=== PATIENT | female | born 1940 ===

== ENCOUNTER 2022-02-26 18:36 | Inpatient (IN) | payer MEDICARE, BC ==
[2022-02-26] MEDS ORDERED: Acetaminophen 650 MG Suppository PR PRN (22:57)
[2022-02-26] MEDS ORDERED: Ondansetron ODT 4 MG TAB PO PRN (22:57)
[2022-02-26] MEDS ORDERED: Ondansetron PF 4 MG/2 ML Vial IVP PRN (22:57)
[2022-02-27] MEDS ORDERED: Piperacillin/Tazobactam 3.375 GM in Sodium Chloride 0.9% 100 ML IVPB SCH (00:01)
[2022-02-27] MEDS ORDERED: Sodium Chloride 0.9% 500 ML IV SCH (00:01)
[2022-02-27 00:05] LABS: Hemoglobin 6.6 g/dL (12.0-16.0); Mean Corpuscular HGB CONC 32.5 g/dL (32.0-36.0); Mean Corpuscular Hemoglobin 34.3 pg (27.0-31.0); Mean Platelet Volume 8.5 fL (7.4-10.4); Platelet Count 145 thou/uL (130-400); RBC Distribution Width 14.8 % (11.5-14.5); Red Blood Cell (RBC) Count 1.93 mill/uL (4.20-5.40); White Blood Cell (WBC) Count 15.7 thou/uL (4.8-10.8)
[2022-02-27] MEDS ORDERED: Pantoprazole 80 MG in Sodium Chloride 0.9% 100 ML IVPB SCH (00:15)
[2022-02-27] MEDS: Octreotide Acetate 1,250 MCG in Sodium Chloride 0.9% 250 ML 250 ML IVPB SCH ×2 (00:16→23:33)
[2022-02-27 00:23] LABS: #Basophils 0.1 thou/uL (0.0-0.2); #Eosinphils 0.1 thou/uL (0.0-0.7); #Lymphocytes 2.4 thou/uL (1.20-3.40); #Monocytes 1.5 thou/uL (0.11-0.59); #Neutrophils 11.6 thou/uL (1.40-6.50); %Basophils 0.9 % (0.0-1.0); %Eosinophils 0.4 % (0.0-10.0); %Lymphocytes 15.3 % (21.0-51.0); %Monocytes 9.3 % (0.0-10.0)
[2022-02-27 00:27] LABS: Anion Gap 17 mmol/L (10-20); BUN (Urea Nitrogen) 51 mg/dL (9.8-20.1); Calc. Creatinine Clearance 50 mL/min (70-130); Calcium 7.6 mg/dL (7.8-10.44); Carbon Dioxide 21 mmol/L (23-31); Chloride 106 mmol/L (98-107); Estimated GFR 69; Glucose 115 mg/dL (83-110); Potassium 5.5 mmol/L (3.5-5.1); Sodium 138 mmol/L (136-145)
[2022-02-27] MEDS ORDERED: Sodium Chloride 0.9% 1,000 ML IV SCH ×2 (00:30→06:15)
[2022-02-27 01:09] LABS: INR-International Normal Ratio 2.4; Prothrombin Time 26.8 sec (12.0-14.7)
[2022-02-27 01:10] LABS: PTT 21.1 sec (22.9-36.1)
[2022-02-27 01:17] LABS: ALT (SGPT) 26 U/L (8-55); AST (SGOT) 45 U/L (5-34); Albumin 2.1 g/dL (3.4-4.8); Alkaline Phosphatase 82 U/L (40-110); Bilirubin, Direct 0.6 mg/dL (0.1-0.3); Bilirubin, Total 1.4 mg/dL (0.2-1.2); Protein, Total 3.4 g/dL (5.8-8.1)
[2022-02-27 04:17] LABS: Bacteria/HPF None Seen HPF (None Seen); Bilirubin Negative (Negative); Blood, Urine Negative (Negative); Clarity Clear (Clear); Glucose, Urine (Dipstick) Normal (Negative); Ketone, Urine Negative (Negative); Leukocyte Negative Leu/uL (Negative); Nitrite Negative (Negative); Protein, Urine (Dipstick) Negative (Neg-Trace); RBC/HPF 0-3 HPF (0-3); Specific Gravity, Urine 1.039 (1.002-1.036); Squamous Epithelial 0-3 HPF (0-3); Urobilinogen Normal mg/dL (Less than 2); pH, Urine 5.5 (5.0-9.0)
[2022-02-27 04:19] LABS: Urine Culture Reflex Yes Yes
[2022-02-27 05:17] LABS: #Basophils 0.1 thou/uL (0.0-0.2); #Eosinphils 0.1 thou/uL (0.0-0.7); #Lymphocytes 2.8 thou/uL (1.20-3.40); #Monocytes 1.8 thou/uL (0.11-0.59); #Neutrophils 11.9 thou/uL (1.40-6.50); %Basophils 0.5 % (0.0-1.0); %Eosinophils 0.5 % (0.0-10.0); %Lymphocytes 16.8 % (21.0-51.0); %Monocytes 10.7 % (0.0-10.0); %Neutrophils 71.5 % (42.0-75.0); Hemoglobin 8.2 g/dL (12.0-16.0); Mean Corpuscular HGB CONC 33.2 g/dL (32.0-36.0); Mean Corpuscular Hemoglobin 32.4 pg (27.0-31.0); Mean Corpuscular Volume 97.4 fl (78.0-98.0); Mean Platelet Volume 8.2 fL (7.4-10.4); Platelet Count 122 thou/uL (130-400); RBC Distribution Width 16.5 % (11.5-14.5); Red Blood Cell (RBC) Count 2.54 mill/uL (4.20-5.40); White Blood Cell (WBC) Count 16.6 thou/uL (4.8-10.8)
[2022-02-27] MEDS: Piperacillin/Tazobactam 3.375 GM in Sodium Chloride 0.9% 100 ML IVPB SCH ×3 (05:56→21:50)
[2022-02-27 05:58] LABS: Lactic Acid 7.8 mmol/L (0.5-2.2)
[2022-02-27 06:10] LABS: Anion Gap 16 mmol/L (10-20); BUN (Urea Nitrogen) 55 mg/dL (9.8-20.1); Calc. Creatinine Clearance 49 mL/min (70-130); Calcium 7.4 mg/dL (7.8-10.44); Carbon Dioxide 23 mmol/L (23-31); Chloride 105 mmol/L (98-107); Estimated GFR 68; Glucose 118 mg/dL (83-110); Potassium 4.9 mmol/L (3.5-5.1); Sodium 139 mmol/L (136-145)
[2022-02-27 07:28] LABS: Actual Bicarbonate (HCO3a) 20.6 mEq/L (22-28); Base Excess (BEa) -1.9 mEq/L (-2.0 to +3.0); CO2 Tension 25.8 mmHg (35.0-45.0); Calcium, Ionized (arterial) 1.04 mmol/L (1.12-1.30); Carboxyhemoglobin (COHb) 0.7 gm% (0.0-3.0); Hemoglobin (Hb) 6.8 g/dL (12.0-16.0); O2 Tension (PaO2), arterial 72.2 mmHg (> 60.0); Potassium - ABG Lab 4.57 mmol/L (3.70-5.30); Puncture Site RRA; pH, Arterial 7.52 (7.35-7.45)
[2022-02-27 08:15] LABS: ALT (SGPT) 28 U/L (8-55); AST (SGOT) 46 U/L (5-34); Albumin 2.2 g/dL (3.4-4.8); Alkaline Phosphatase 68 U/L (40-110); Anion Gap 18 mmol/L (10-20); BUN (Urea Nitrogen) 55 mg/dL (9.8-20.1); Bilirubin, Total 2.1 mg/dL (0.2-1.2); Calc. Creatinine Clearance 49 mL/min (70-130); Calcium 7.4 mg/dL (7.8-10.44); Carbon Dioxide 22 mmol/L (23-31); Chloride 106 mmol/L (98-107); Estimated GFR 68; Globulin 1.3 g/dL (2.4-3.5); Glucose 120 mg/dL (83-110); Protein, Total 3.5 g/dL (5.8-8.1); Sodium 141 mmol/L (136-145)
[2022-02-27 09:52] LABS: Hemoglobin 5.9 g/dL (12.0-16.0); Platelet Count 119 thou/uL (130-400)
[2022-02-27 10:01] LABS: Lactic Acid 10.1 mmol/L (0.5-2.2)
[2022-02-27] MEDS: Lactated Ringer's 1,000 ML IV SCH ×2 (10:17→23:33)
[2022-02-27] MEDS: Pantoprazole 80 MG, Admixture Fee 1 EACH in Sodium Chloride 0.9% 100 ML IVPB SCH ×2 (11:59→22:48)
[2022-02-27 16:32] LABS: Hemoglobin 12.4 g/dL (12.0-16.0)
[2022-02-27 17:11] LABS: #Basophils 0.1 thou/uL (0.0-0.2); #Eosinphils 0.1 thou/uL (0.0-0.7); #Lymphocytes 2.5 thou/uL (1.20-3.40); #Monocytes 1.8 thou/uL (0.11-0.59); #Neutrophils 13.8 thou/uL (1.40-6.50); %Basophils 0.3 % (0.0-1.0); %Eosinophils 0.3 % (0.0-10.0); %Lymphocytes 13.5 % (21.0-51.0); %Monocytes 9.7 % (0.0-10.0); %Neutrophils 76.1 % (42.0-75.0); Hemoglobin 12.1 g/dL (12.0-16.0); Mean Corpuscular HGB CONC 33.7 g/dL (32.0-36.0); Mean Corpuscular Hemoglobin 30.2 pg (27.0-31.0); Mean Corpuscular Volume 89.5 fl (78.0-98.0); Mean Platelet Volume 8.4 fL (7.4-10.4); Platelet Count 54 thou/uL (130-400); RBC Distribution Width 15.2 % (11.5-14.5); Red Blood Cell (RBC) Count 4.01 mill/uL (4.20-5.40); White Blood Cell (WBC) Count 18.2 thou/uL (4.8-10.8)
[2022-02-27 17:21] LABS: INR-International Normal Ratio 2.6; Prothrombin Time 28.3 sec (12.0-14.7)
[2022-02-27 17:39] LABS: Lactic Acid 5.2 mmol/L (0.5-2.2)
[2022-02-27 18:19] LABS: SARS-CoV-2 NAA Rapid Test Not Detected (NotDetected)
[2022-02-27] MEDS ORDERED: PROPOFOL 200 MG/20 ML VIAL ONE ×2 (18:42→19:12)
[2022-02-27 19:08] LABS: PTT 33.3 sec (22.9-36.1); Prothrombin Time 22.8 sec (12.0-14.7)
[2022-02-27 19:09] LABS: D-Dimer Test 3.07 *mcg/mL (0.27-0.43)
[2022-02-27] MEDS ORDERED: Vecuronium 10 MG VIAL ONE (19:12)
[2022-02-27] MEDS ORDERED: Rocuronium Bromide 10 MG/ML (10ML VIAL) ONE (19:12)
[2022-02-27] MEDS ORDERED: Succinylcholine 200 MG/10 ml SYRINGE FS ONE (19:12)
[2022-02-27 19:13] LABS: Platelet Count 62 thou/uL (130-400)
[2022-02-27 19:14] LABS: Fibrinogen 81 mg/dL (253-463)
[2022-02-27 19:18] LABS: Iron Binding Capacity, Total 135 mcg/dL (265-497)
[2022-02-27] MEDS ORDERED: Albumin 5% 500 ML ONE (19:18)
[2022-02-27] MEDS ORDERED: Norepinephrine 4 MG/4 ML VIAL ONE (19:18)
[2022-02-27] MEDS ORDERED: Phenylephrine 10 MG/ML VIAL ONE (19:18)
[2022-02-27 19:19] LABS: Iron 143 ug/dL (50-170); Lipase 56 U/L (8-78)
[2022-02-27] MEDS ORDERED: fentaNYL PF 100 MCG/2 ML SYRINGE ONE (19:26)
[2022-02-27] MEDS ORDERED: Hydrocortisone Sod Succ/PF 250 mg/2 ml Vial ONE (19:27)
[2022-02-27] MEDS ORDERED: Ketamine 50 MG/ML (10ML VIAL) ONE (19:35)
[2022-02-27 19:39] LABS: HBCM Index 0.06 S/CO (0-0.79); HBSAg Index 0.35 S/CO (0-0.99); Hep A IgM AB Non-Reactive (NonReactive); Hep B Surf Ag Non-Reactive S/CO (NonReactive); Hep C IgG Ab Non-Reactive (NonReactive); Hep C Index 0.15 S/CO (0-0.79); Hepatitis B Core IgM Abs Non-Reactive (NonReactive)
[2022-02-27] MEDS ORDERED: Midazolam HCl 5 mg/5 ml Vial ONE (20:08)
[2022-02-27] MEDS ORDERED: Promethazine HCl 25 MG/ML VIAL IM PRN (20:20)
[2022-02-27] MEDS ORDERED: Dextrose 50% Abboject 50 ML SYRINGE SLOW IVP PRN (20:20)
[2022-02-27] MEDS ORDERED: Morphine 4 MG/ML VIAL SLOW IVP PRN ×2 (20:20→20:45)
[2022-02-27] MEDS ORDERED: Dextrose 5% in Water 1,000 ML IV PRN (20:20)
[2022-02-27] MEDS ORDERED: Propofol BOLUS 1,000 MG/100 ML VIAL IV PRN (20:45)
[2022-02-27] MEDS ORDERED: DISCONTINUE PREVIOUS NARCOTIC PAIN MEDICATIONS AND BENZODIAZEPINES FS SCH (20:45)
[2022-02-27] MEDS ORDERED: Fentanyl BOLUS 250 ML IVPB PRN (20:45)
[2022-02-27] MEDS ORDERED: Propofol 1,000 MG/100 ML VIAL IV PRN (20:45)
[2022-02-27] MEDS ORDERED: Famotidine/PF 20 mg/2ml Vial SLOW IVP SCH (21:00)
[2022-02-27] MEDS ORDERED: Fentanyl CADD 100 ML ONE (21:05)
[2022-02-27] MEDS: Fentanyl CADD 100 ML IV SCH (21:09)
[2022-02-27 21:14] LABS: Base Excess (BEa) 1.1 mEq/L (-2.0 to +3.0); CO2 Tension 26.9 mmHg (35.0-45.0); Calcium, Ionized (arterial) 0.98 mmol/L (1.12-1.30); Carboxyhemoglobin (COHb) 1.1 gm% (0.0-3.0); Hemoglobin (Hb) 8.9 g/dL (12.0-16.0); O2 Tension (PaO2), arterial 81.2 mmHg (> 60.0); Potassium - ABG Lab 4.17 mmol/L (3.70-5.30)
[2022-02-27] MEDS: Midazolam HCl 2 mg/2 ml Vial SLOW IVP PRN (21:24)
[2022-02-27] MEDS: Hydrocortisone Sod Succ/PF 100 mg/2 ml Vial IVP SCH (21:52)
[2022-02-27] MEDS: hydrALAZINE 20 MG/ML VIAL SLOW IVP PRN (22:03)
[2022-02-27 22:11] LABS: Puncture Site RBA; pH, Arterial 7.55 (7.35-7.45)
[2022-02-27 22:12] LABS: ALV-art Gradient 170.375 mmHg (0-20)
[2022-02-28] MEDS: Midazolam HCl 2 mg/2 ml Vial SLOW IVP PRN (00:50)
[2022-02-28 01:07] LABS: Hemoglobin 10.1 g/dL (12.0-16.0)
[2022-02-28] MEDS: Hydrocortisone Sod Succ/PF 100 mg/2 ml Vial IVP SCH ×3 (04:43→21:10)
[2022-02-28] MEDS: Piperacillin/Tazobactam 3.375 GM in Sodium Chloride 0.9% 100 ML IVPB SCH (05:16)
[2022-02-28 05:45] LABS: ALT (SGPT) 32 U/L (8-55); AST (SGOT) 58 U/L (5-34); Albumin 2.7 g/dL (3.4-4.8); Alkaline Phosphatase 71 U/L (40-110); Anion Gap 22 mmol/L (10-20); BUN (Urea Nitrogen) 55 mg/dL (9.8-20.1); Bilirubin, Total 5.7 mg/dL (0.2-1.2); Calc. Creatinine Clearance 53 mL/min (70-130); Carbon Dioxide 13 mmol/L (23-31); Chloride 110 mmol/L (98-107); Estimated GFR 75; Globulin 2.1 g/dL (2.4-3.5); Glucose 100 mg/dL (83-110); Protein, Total 4.8 g/dL (5.8-8.1); Sodium 140 mmol/L (136-145)
[2022-02-28 05:46] LABS: Lactic Acid 9.8 mmol/L (0.5-2.2)
[2022-02-28 06:40] LABS: Anisocytosis SLIGHT = 6-15 cells (100X) (0-5/hpf); Band 10 % (5-11); Hemoglobin 12.3 g/dL (12.0-16.0); Lymphocytes 7 % (21-51); MDiff Complete? YES; Mean Corpuscular HGB CONC 32.3 g/dL (32.0-36.0); Mean Corpuscular Hemoglobin 30.2 pg (27.0-31.0); Mean Corpuscular Volume 93.4 fl (78.0-98.0); Mean Platelet Volume 8.7 fL (7.4-10.4); Monocytes 1 % (0-10); Neutrophil 82 % (42-75); Platelet Count 59 thou/uL (130-400); RBC Distribution Width 15.5 % (11.5-14.5); Red Blood Cell (RBC) Count 4.07 mill/uL (4.20-5.40); White Blood Cell (WBC) Count 24.2 thou/uL (4.8-10.8)
[2022-02-28 07:55] LABS: Actual Bicarbonate (HCO3a) 23.3 mEq/L (22-28); Base Excess (BEa) -0.9 mEq/L (-2.0 to +3.0); CO2 Tension 36.7 mmHg (35.0-45.0); Calcium, Ionized (arterial) 1.08 mmol/L (1.12-1.30); Carboxyhemoglobin (COHb) 0.4 gm% (0.0-3.0); Hemoglobin (Hb) 10.5 g/dL (12.0-16.0); O2 Tension (PaO2), arterial 97.5 mmHg (> 60.0); Potassium - ABG Lab 4.18 mmol/L (3.70-5.30); Puncture Site RRA; pH, Arterial 7.42 (7.35-7.45)
[2022-02-28 07:57] LABS: ALV-art Gradient 141.825 mmHg (0-20)
[2022-02-28] MEDS ORDERED: Thiamine HCl 200 MG/2 ML VIAL SLOW IVP SCH ×3 (09:00→13:00)
[2022-02-28] MEDS ORDERED: Folic Acid 1 MG TAB PER TUBE SCH (09:00)
[2022-02-28] MEDS ORDERED: Multivit, Chewable SF 1 TAB PER TUBE SCH (09:00)
[2022-02-28] MEDS: Pantoprazole 80 MG, Admixture Fee 1 EACH in Sodium Chloride 0.9% 100 ML IVPB SCH (09:22)
[2022-02-28] MEDS ORDERED: Furosemide 40 MG/4 ML VIAL SLOW IVP SCH (09:30)
[2022-02-28] MEDS ORDERED: Albumin 25% 25 GM/100 ML BOT IVPB SCH (09:30)
[2022-02-28 11:11] LABS: Magnesium 1.6 mg/dL (1.6-2.6); Phosphorus 3.4 mg/dL (2.3-4.7)
[2022-02-28] MEDS ORDERED: Magnesium Sulfate 4 GM in Sodium Chloride 0.9% 250 ML 250 ML IVPB SCH (11:45)
[2022-02-28] MEDS ORDERED: Cefepime 2 GM in Sodium Chloride 0.9% 100 ML IVPB SCH (14:15)
[2022-02-28] MEDS: metroNIDAZOLE 500 MG in Premix Bag 1 BAG IVPB SCH ×2 (14:20→21:11)
[2022-02-28] MEDS: Vancomycin 1 GM in Premix Bag 1 BAG IVPB SCH (15:55)
[2022-02-28] MEDS ORDERED: Vancomycin 1 GM in Premix Bag 1 BAG IVPB SCH (21:00)
[2022-02-28] MEDS: Cefepime 1 GM in Sodium Chloride 0.9% 100 ML IVPB SCH (21:10)
[2022-02-28] MEDS: Pantoprazole 40 MG VIAL IVP SCH (21:12)
[2022-03-01] MEDS: hydrALAZINE 20 MG/ML VIAL SLOW IVP PRN ×3 (01:11→22:15)
[2022-03-01] MEDS ORDERED: Fentanyl CADD 100 ML ONE (02:32)
[2022-03-01] MEDS: Fentanyl CADD 100 ML IV SCH (02:35)
[2022-03-01] MEDS: metroNIDAZOLE 500 MG in Premix Bag 1 BAG IVPB SCH ×4 (03:33→21:31)
[2022-03-01 03:46] LABS: INR-International Normal Ratio 1.8; PTT 36.2 sec (22.9-36.1); Prothrombin Time 21.3 sec (12.0-14.7)
[2022-03-01 03:54] LABS: D-Dimer Test 8.85 *mcg/mL (0.27-0.43)
[2022-03-01 04:02] LABS: ALT (SGPT) 26 U/L (8-55); AST (SGOT) 41 U/L (5-34); Albumin 2.6 g/dL (3.4-4.8); Alkaline Phosphatase 53 U/L (40-110); Anion Gap 14 mmol/L (10-20); BUN (Urea Nitrogen) 50 mg/dL (9.8-20.1); Bilirubin, Total 3.8 mg/dL (0.2-1.2); Calc. Creatinine Clearance 50 mL/min (70-130); Calcium 7.6 mg/dL (7.8-10.44); Carbon Dioxide 23 mmol/L (23-31); Chloride 110 mmol/L (98-107); Estimated GFR 65; Globulin 1.6 g/dL (2.4-3.5); Glucose 147 mg/dL (83-110); Lipase 24 U/L (8-78); Magnesium 2.3 mg/dL (1.6-2.6); Phosphorus 2.7 mg/dL (2.3-4.7); Potassium 3.5 mmol/L (3.5-5.1); Protein, Total 4.2 g/dL (5.8-8.1); Sodium 143 mmol/L (136-145)
[2022-03-01 05:22] LABS: #Lymphocytes 0.5 thou/uL (1.20-3.40); #Monocytes 0.7 thou/uL (0.11-0.59); #Neutrophils 9.2 thou/uL (1.40-6.50); %Basophils 0.1 % (0.0-1.0); %Eosinophils 0.1 % (0.0-10.0); %Lymphocytes 4.5 % (21.0-51.0); %Monocytes 7.1 % (0.0-10.0); %Neutrophils 88.2 % (42.0-75.0); Hemoglobin 7.7 g/dL (12.0-16.0); Mean Corpuscular HGB CONC 33.4 g/dL (32.0-36.0); Mean Corpuscular Hemoglobin 30.2 pg (27.0-31.0); Mean Corpuscular Volume 90.5 fl (78.0-98.0); Mean Platelet Volume 8.6 fL (7.4-10.4); Platelet Count 54 thou/uL (130-400); RBC Distribution Width 15.4 % (11.5-14.5); Red Blood Cell (RBC) Count 2.56 mill/uL (4.20-5.40); White Blood Cell (WBC) Count 10.4 thou/uL (4.8-10.8)
[2022-03-01] MEDS: Hydrocortisone Sod Succ/PF 100 mg/2 ml Vial IVP SCH ×3 (05:27→21:30)
[2022-03-01 06:53] LABS: Actual Bicarbonate (HCO3a) 29.6 mEq/L (22-28); Base Excess (BEa) 6.8 mEq/L (-2.0 to +3.0); CO2 Tension 34.7 mmHg (35.0-45.0); Calcium, Ionized (arterial) 1.06 mmol/L (1.12-1.30); Carboxyhemoglobin (COHb) 0.6 gm% (0.0-3.0); Hemoglobin (Hb) 8.1 g/dL (12.0-16.0); O2 Tension (PaO2), arterial 103.4 mmHg (> 60.0); Potassium - ABG Lab 3.06 mmol/L (3.70-5.30)
[2022-03-01 06:59] LABS: Puncture Site RBA; pH, Arterial 7.55 (7.35-7.45)
[2022-03-01 07:00] LABS: ALV-art Gradient 138.425 mmHg (0-20)
[2022-03-01] MEDS: Cefepime 1 GM in Sodium Chloride 0.9% 100 ML IVPB SCH ×2 (08:10→21:31)
[2022-03-01] MEDS: Pantoprazole 40 MG VIAL IVP SCH ×2 (08:11→21:31)
[2022-03-01] MEDS ORDERED: Furosemide 40 MG/4 ML VIAL SLOW IVP SCH (13:45)
[2022-03-01] MEDS: Multivitamins, Adult 10 ML, TRACE ELEMENT CONCENTRATE 1 ML, Fat Emulsion 250 ML in D15W... IV SCH (13:57)
[2022-03-01] MEDS: Vancomycin 1 GM in Premix Bag 1 BAG IVPB SCH (14:08)
[2022-03-01 14:39] LABS: Alpha-1-Antitrypsin 98 mg/dL (101-187)
[2022-03-01] MEDS: Piperacillin/Tazobactam 3.375 GM in Sodium Chloride 0.9% 100 ML IVPB SCH (16:23)
[2022-03-01 22:46] LABS: Hemoglobin 11.4 g/dL (12.0-16.0); Platelet Count 50 thou/uL (130-400)
[2022-03-02] MEDS: hydrALAZINE 20 MG/ML VIAL SLOW IVP PRN ×2 (03:13→07:53)
[2022-03-02] MEDS: metroNIDAZOLE 500 MG in Premix Bag 1 BAG IVPB SCH ×4 (03:14→21:38)
[2022-03-02] MEDS: Hydrocortisone Sod Succ/PF 100 mg/2 ml Vial IVP SCH ×3 (03:49→20:39)
[2022-03-02 04:22] LABS: #Basophils 0.1 thou/uL (0.0-0.2); #Lymphocytes 0.3 thou/uL (1.20-3.40); #Monocytes 0.9 thou/uL (0.11-0.59); #Neutrophils 11.4 thou/uL (1.40-6.50); %Basophils 0.8 % (0.0-1.0); %Eosinophils 0.2 % (0.0-10.0); %Lymphocytes 2.1 % (21.0-51.0); Hemoglobin 11.2 g/dL (12.0-16.0); Mean Corpuscular Hemoglobin 29.9 pg (27.0-31.0); Mean Corpuscular Volume 90.4 fl (78.0-98.0); Mean Platelet Volume 8.2 fL (7.4-10.4); Platelet Count 49 thou/uL (130-400); RBC Distribution Width 14.9 % (11.5-14.5); Red Blood Cell (RBC) Count 3.74 mill/uL (4.20-5.40); White Blood Cell (WBC) Count 12.6 thou/uL (4.8-10.8)
[2022-03-02 04:26] LABS: Lactic Acid 3.2 mmol/L (0.5-2.2)
[2022-03-02 04:30] LABS: ALT (SGPT) 29 U/L (8-55); AST (SGOT) 42 U/L (5-34); Alkaline Phosphatase 68 U/L (40-110); Anion Gap 11 mmol/L (10-20); BUN (Urea Nitrogen) 51 mg/dL (9.8-20.1); Bilirubin, Total 5.4 mg/dL (0.2-1.2); Calc. Creatinine Clearance 47 mL/min (70-130); Calcium 7.9 mg/dL (7.8-10.44); Carbon Dioxide 27 mmol/L (23-31); Cardiac Risk 2.8 (Less than 4.5); Chloride 107 mmol/L (98-107); Cholesterol 90 mg/dl (< 200 Desired); Estimated GFR 60; Globulin 1.9 g/dL (2.4-3.5); Glucose 214 mg/dL (83-110); HDL Cholesterol 32 mg/dL (>60 Neg Risk); LDL Cholesterol, Calculated 48 mg/dL; Magnesium 2.1 mg/dL (1.6-2.6); Phosphorus 2.7 mg/dL (2.3-4.7); Protein, Total 4.9 g/dL (5.8-8.1); Sodium 142 mmol/L (136-145); Triglycerides 51 mg/dL (Less than 150)
[2022-03-02 05:08] LABS: INR-International Normal Ratio 1.4; Prothrombin Time 17.6 sec (12.0-14.7)
[2022-03-02 05:15] LABS: D-Dimer Test 12.37 *mcg/mL (0.27-0.43)
[2022-03-02] MEDS: Pantoprazole 40 MG VIAL IVP SCH ×2 (07:53→20:41)
[2022-03-02] MEDS: Cefepime 1 GM in Sodium Chloride 0.9% 100 ML IVPB SCH ×2 (07:53→20:39)
[2022-03-02 07:55] LABS: Actual Bicarbonate (HCO3a) 25.7 mEq/L (22-28); Base Excess (BEa) 1.5 mEq/L (-2.0 to +3.0); CO2 Tension 39.1 mmHg (35.0-45.0); Calcium, Ionized (arterial) 1.11 mmol/L (1.12-1.30); Carboxyhemoglobin (COHb) 0.8 gm% (0.0-3.0); Hemoglobin (Hb) 11.7 g/dL (12.0-16.0); O2 Tension (PaO2), arterial 103.2 mmHg (> 60.0); pH, Arterial 7.44 (7.35-7.45)
[2022-03-02 07:59] LABS: Puncture Site RRA
[2022-03-02 08:00] LABS: ALV-art Gradient 133.125 mmHg (0-20)
[2022-03-02] MEDS ORDERED: Electrolyte Replacement Protocol FS ONE (08:18)
[2022-03-02] MEDS ORDERED: Potassium Chloride 40 MEQ in Premix Bag 1 BAG IVPB SCH ×2 (08:30→13:00)
[2022-03-02] MEDS ORDERED: Furosemide 40 MG/4 ML VIAL SLOW IVP SCH (08:30)
[2022-03-02] MEDS: Labetalol HCl 100 MG/20 ML VIAL SLOW IVP PRN (10:39)
[2022-03-02] MEDS: Midazolam HCl 2 mg/2 ml Vial SLOW IVP PRN (11:17)
[2022-03-02] MEDS ORDERED: Spironolactone 25 MG TAB PO SCH (11:30)
[2022-03-02] MEDS ORDERED: Carvedilol 3.125 MG TAB PO SCH (11:30)
[2022-03-02] MEDS: Fluconazole In NaCl,Iso-Osm 400 MG in Premix Bag 1 BAG IVPB SCH (12:26)
[2022-03-02] MEDS: Fentanyl CADD 100 ML IV SCH (13:40)
[2022-03-02] MEDS: Multivitamins, Adult 10 ML, TRACE ELEMENT CONCENTRATE 1 ML in D15W-AA 5% with Lytes 2,0... IV SCH (13:48)
[2022-03-02 14:33] LABS: Vancomycin, Trough 10.4 ug/mL
[2022-03-02] MEDS: VANCOMYCIN 1.25 GM/250 ML BAG 1.25 GM in Premix Bag 1 BAG IVPB SCH (15:37)
[2022-03-02 17:40] LABS: Anion Gap 8 mmol/L (10-20); BUN (Urea Nitrogen) 53 mg/dL (9.8-20.1); Calc. Creatinine Clearance 61 mL/min (70-130); Calcium 7.8 mg/dL (7.8-10.44); Carbon Dioxide 29 mmol/L (23-31); Chloride 109 mmol/L (98-107); Estimated GFR 77; Glucose 150 mg/dL (83-110); Potassium 3.9 mmol/L (3.5-5.1); Sodium 142 mmol/L (136-145)
[2022-03-02] MEDS: Carvedilol 3.125 MG TAB PO SCH (17:51)
[2022-03-02] MEDS ORDERED: Vancomycin 1 GM in Premix Bag 1 BAG IVPB SCH (23:00)
[2022-03-03] MEDS: metroNIDAZOLE 500 MG in Premix Bag 1 BAG IVPB SCH ×4 (03:38→21:58)
[2022-03-03] MEDS: Hydrocortisone Sod Succ/PF 100 mg/2 ml Vial IVP SCH ×3 (03:43→20:18)
[2022-03-03 05:15] LABS: #Lymphocytes 0.5 thou/uL (1.20-3.40); #Neutrophils 11.4 thou/uL (1.40-6.50); %Eosinophils 0.1 % (0.0-10.0); %Lymphocytes 3.5 % (21.0-51.0); %Monocytes 7.5 % (0.0-10.0); %Neutrophils 88.9 % (42.0-75.0); Hemoglobin 10.6 g/dL (12.0-16.0); Lactic Acid 1.8 mmol/L (0.5-2.2); Mean Corpuscular HGB CONC 31.4 g/dL (32.0-36.0); Mean Corpuscular Hemoglobin 29.5 pg (27.0-31.0); Mean Corpuscular Volume 93.8 fl (78.0-98.0); Platelet Count 50 thou/uL (130-400); RBC Distribution Width 16.3 % (11.5-14.5); White Blood Cell (WBC) Count 12.8 thou/uL (4.8-10.8)
[2022-03-03 05:18] LABS: ALT (SGPT) 26 U/L (8-55); AST (SGOT) 32 U/L (5-34); Albumin 2.5 g/dL (3.4-4.8); Alkaline Phosphatase 63 U/L (40-110); Anion Gap 7 mmol/L (10-20); BUN (Urea Nitrogen) 56 mg/dL (9.8-20.1); Bilirubin, Total 2.8 mg/dL (0.2-1.2); Calc. Creatinine Clearance 55 mL/min (70-130); Calcium 7.7 mg/dL (7.8-10.44); Carbon Dioxide 30 mmol/L (23-31); Chloride 109 mmol/L (98-107); Estimated GFR 68; Globulin 1.7 g/dL (2.4-3.5); Glucose 180 mg/dL (83-110); Potassium 4.2 mmol/L (3.5-5.1); Protein, Total 4.2 g/dL (5.8-8.1); Sodium 142 mmol/L (136-145)
[2022-03-03 05:25] LABS: INR-International Normal Ratio 1.5; PTT 34.6 sec (22.9-36.1); Prothrombin Time 18.5 sec (12.0-14.7)
[2022-03-03 05:32] LABS: D-Dimer Test 13.56 *mcg/mL (0.27-0.43)
[2022-03-03 07:17] LABS: Actual Bicarbonate (HCO3a) 27.8 mEq/L (22-28); CO2 Tension 43.9 mmHg (35.0-45.0); Calcium, Ionized (arterial) 1.13 mmol/L (1.12-1.30); Carboxyhemoglobin (COHb) 0.2 gm% (0.0-3.0); Hemoglobin (Hb) 11.4 g/dL (12.0-16.0); O2 Tension (PaO2), arterial 91.7 mmHg (> 60.0); Potassium - ABG Lab 4.12 mmol/L (3.70-5.30); pH, Arterial 7.42 (7.35-7.45)
[2022-03-03 07:25] LABS: ALV-art Gradient 138.625 mmHg (0-20)
[2022-03-03] MEDS: Pantoprazole 40 MG VIAL IVP SCH ×2 (08:21→20:17)
[2022-03-03] MEDS: Carvedilol 3.125 MG TAB PO SCH ×2 (08:21→16:32)
[2022-03-03] MEDS: Cefepime 1 GM in Sodium Chloride 0.9% 100 ML IVPB SCH ×2 (08:21→20:17)
[2022-03-03] MEDS ORDERED: Spironolactone 25 MG TAB PO SCH (09:00)
[2022-03-03] MEDS ORDERED: Furosemide 40 MG/4 ML VIAL SLOW IVP SCH (10:45)
[2022-03-03] MEDS: Fluconazole In NaCl,Iso-Osm 400 MG in Premix Bag 1 BAG IVPB SCH (11:19)
[2022-03-03 13:37] LABS: Smooth Muscle Total ABS 3 Units (0-19)
[2022-03-03] MEDS: Multivitamins, Adult 10 ML, TRACE ELEMENT CONCENTRATE 1 ML in D15W-AA 5% with Lytes 2,0... IV SCH (14:16)
[2022-03-03] MEDS: VANCOMYCIN 1.25 GM/250 ML BAG 1.25 GM in Premix Bag 1 BAG IVPB SCH (15:34)
[2022-03-03 16:37] LABS: HBV as IU/mL HBV DNA not detected IU/mL (.)
[2022-03-03] MEDS: hydrALAZINE 20 MG/ML VIAL SLOW IVP PRN (18:36)
[2022-03-04] MEDS: hydrALAZINE 20 MG/ML VIAL SLOW IVP PRN ×3 (00:37→21:43)
[2022-03-04] MEDS: metroNIDAZOLE 500 MG in Premix Bag 1 BAG IVPB SCH ×4 (03:07→21:44)
[2022-03-04] MEDS: Hydrocortisone Sod Succ/PF 100 mg/2 ml Vial IVP SCH ×3 (03:33→21:43)
[2022-03-04 03:59] LABS: Lactic Acid 2.8 mmol/L (0.5-2.2)
[2022-03-04 04:13] LABS: ALT (SGPT) 24 U/L (8-55); AST (SGOT) 31 U/L (5-34); Albumin 2.5 g/dL (3.4-4.8); Alkaline Phosphatase 72 U/L (40-110); Anion Gap 11 mmol/L (10-20); BUN (Urea Nitrogen) 64 mg/dL (9.8-20.1); Bilirubin, Total 3.2 mg/dL (0.2-1.2); Calc. Creatinine Clearance 52 mL/min (70-130); Calcium 7.6 mg/dL (7.8-10.44); Carbon Dioxide 27 mmol/L (23-31); Chloride 108 mmol/L (98-107); Estimated GFR 63; Globulin 1.7 g/dL (2.4-3.5); Glucose 173 mg/dL (83-110); Potassium 4.5 mmol/L (3.5-5.1); Protein, Total 4.2 g/dL (5.8-8.1); Sodium 141 mmol/L (136-145)
[2022-03-04 04:15] LABS: INR-International Normal Ratio 1.6; Prothrombin Time 19.3 sec (12.0-14.7)
[2022-03-04 04:19] LABS: Fibrinogen 148 mg/dL (253-463)
[2022-03-04 04:24] LABS: Band 3 % (5-11); Hemoglobin 11.9 g/dL (12.0-16.0); Lymphocytes 2 % (21-51); MDiff Complete? YES; Mean Corpuscular HGB CONC 31.7 g/dL (32.0-36.0); Mean Corpuscular Hemoglobin 30.5 pg (27.0-31.0); Mean Corpuscular Volume 96.2 fl (78.0-98.0); Mean Platelet Volume 8.9 fL (7.4-10.4); Monocytes 14 % (0-10); Neutrophil 81 % (42-75); Platelet Count 68 thou/uL (130-400); Platelet Morphology Comment Appears Decreased; RBC Distribution Width 17.5 % (11.5-14.5); RBC Morphology Normal; Red Blood Cell (RBC) Count 3.91 mill/uL (4.20-5.40); White Blood Cell (WBC) Count 14.9 thou/uL (4.8-10.8)
[2022-03-04 04:30] LABS: D-Dimer Test Greater than 20.00 *mcg/mL (0.27-0.43)
[2022-03-04] MEDS: Fentanyl CADD 100 ML IV SCH (06:02)
[2022-03-04] MEDS: Carvedilol 3.125 MG TAB PO SCH ×2 (08:13→16:46)
[2022-03-04] MEDS: Cefepime 1 GM in Sodium Chloride 0.9% 100 ML IVPB SCH ×2 (08:13→21:43)
[2022-03-04] MEDS: Pantoprazole 40 MG VIAL IVP SCH ×2 (08:13→21:44)
[2022-03-04] MEDS: Fluconazole In NaCl,Iso-Osm 400 MG in Premix Bag 1 BAG IVPB SCH (10:31)
[2022-03-04] MEDS: Albumin 25% 25 GM/100 ML BOT IVPB SCH ×3 (12:02→23:37)
[2022-03-04] MEDS: Multivitamins, Adult 10 ML, TRACE ELEMENT CONCENTRATE 1 ML, Fat Emulsion 250 ML in D15W... IV SCH (14:05)
[2022-03-04] MEDS: Labetalol HCl 100 MG/20 ML VIAL SLOW IVP PRN (14:07)
[2022-03-04 15:18] LABS: Vancomycin, Trough 17.8 ug/mL
[2022-03-04] MEDS: VANCOMYCIN 1.25 GM/250 ML BAG 1.25 GM in Premix Bag 1 BAG IVPB SCH (16:39)
[2022-03-04] MEDS: Ondansetron PF 4 MG/2 ML Vial IVP PRN (16:46)
[2022-03-05] MEDS: Labetalol HCl 100 MG/20 ML VIAL SLOW IVP PRN ×4 (00:23→16:40)
[2022-03-05] MEDS: hydrALAZINE 20 MG/ML VIAL SLOW IVP PRN ×5 (02:37→23:38)
[2022-03-05] MEDS: Hydrocortisone Sod Succ/PF 100 mg/2 ml Vial IVP SCH (04:06)
[2022-03-05] MEDS: metroNIDAZOLE 500 MG in Premix Bag 1 BAG IVPB SCH ×4 (04:07→21:56)
[2022-03-05 05:07] LABS: INR-International Normal Ratio 2.1; Prothrombin Time 24.9 sec (12.0-14.7)
[2022-03-05 05:08] LABS: PTT 42.2 sec (22.9-36.1)
[2022-03-05 05:15] LABS: D-Dimer Test 18.49 *mcg/mL (0.27-0.43)
[2022-03-05 05:39] LABS: Fibrinogen 85 mg/dL (253-463)
[2022-03-05 05:42] LABS: ALT (SGPT) 26 U/L (8-55); AST (SGOT) 38 U/L (5-34); Albumin 3.3 g/dL (3.4-4.8); Alkaline Phosphatase 54 U/L (40-110); Anion Gap 12 mmol/L (10-20); BUN (Urea Nitrogen) 71 mg/dL (9.8-20.1); Bilirubin, Total 3.8 mg/dL (0.2-1.2); Calc. Creatinine Clearance 48 mL/min (70-130); Calcium 8.4 mg/dL (7.8-10.44); Carbon Dioxide 25 mmol/L (23-31); Chloride 111 mmol/L (98-107); Estimated GFR 58; Globulin 1.3 g/dL (2.4-3.5); Glucose 154 mg/dL (83-110); Potassium 4.8 mmol/L (3.5-5.1); Protein, Total 4.6 g/dL (5.8-8.1); Sodium 143 mmol/L (136-145)
[2022-03-05] MEDS: Albumin 25% 25 GM/100 ML BOT IVPB SCH (05:56)
[2022-03-05 07:28] LABS: Hemoglobin 9.9 g/dL (12.0-16.0); Mean Corpuscular HGB CONC 32.2 g/dL (32.0-36.0); Mean Corpuscular Hemoglobin 31.1 pg (27.0-31.0); Mean Corpuscular Volume 96.9 fl (78.0-98.0); Platelet Count 50 thou/uL (130-400); RBC Distribution Width 17.9 % (11.5-14.5); Red Blood Cell (RBC) Count 3.18 mill/uL (4.20-5.40); White Blood Cell (WBC) Count 10.2 thou/uL (4.8-10.8)
[2022-03-05] MEDS: Pantoprazole 40 MG VIAL IVP SCH ×2 (08:05→20:05)
[2022-03-05] MEDS: Rifaximin 550 MG TAB PO SCH ×2 (08:05→20:05)
[2022-03-05] MEDS: Cefepime 1 GM in Sodium Chloride 0.9% 100 ML IVPB SCH ×2 (08:05→20:05)
[2022-03-05] MEDS: Carvedilol 3.125 MG TAB PO SCH ×3 (08:05→17:07)
[2022-03-05 08:43] LABS: Band 4 % (5-11); Lymphocytes 8 % (21-51); MDiff Complete? YES; Monocytes 12 % (0-10); Myelocyte 2 % (0-0); Neutrophil 73 % (42-75); Ovalocytes SLIGHT = 2-5 cells (100X) (0-1/hpf); Platelet Morphology Comment Appears Decreased; Polychromasia SLIGHT = 2-3 cells (100X) (0-2/hpf); Reactive Lymphocytes 1 % (0-10)
[2022-03-05] MEDS: Fluconazole In NaCl,Iso-Osm 400 MG in Premix Bag 1 BAG IVPB SCH (10:43)
[2022-03-05] MEDS: Furosemide 40 MG/4 ML VIAL SLOW IVP SCH (11:26)
[2022-03-05] MEDS: Multivitamins, Adult 10 ML, TRACE ELEMENT CONCENTRATE 1 ML in D15W-AA 5% with Lytes 2,0... IV SCH (15:41)
[2022-03-05] MEDS: Ondansetron PF 4 MG/2 ML Vial IVP PRN (16:40)
[2022-03-06] MEDS: Labetalol HCl 100 MG/20 ML VIAL SLOW IVP PRN (01:37)
[2022-03-06] MEDS: metroNIDAZOLE 500 MG in Premix Bag 1 BAG IVPB SCH ×4 (04:16→21:21)
[2022-03-06] MEDS: hydrALAZINE 20 MG/ML VIAL SLOW IVP PRN ×2 (04:16→09:30)
[2022-03-06 04:30] LABS: INR-International Normal Ratio 2.1; Prothrombin Time 24.2 sec (12.0-14.7)
[2022-03-06 04:36] LABS: D-Dimer Test 15.83 *mcg/mL (0.27-0.43)
[2022-03-06 04:38] LABS: Fibrinogen 92 mg/dL (253-463)
[2022-03-06] MEDS: Cefepime 1 GM in Sodium Chloride 0.9% 100 ML IVPB SCH ×2 (08:55→21:20)
[2022-03-06] MEDS: Carvedilol 3.125 MG TAB PO SCH ×2 (08:58→17:21)
[2022-03-06] MEDS: Rifaximin 550 MG TAB PO SCH ×2 (08:58→21:21)
[2022-03-06] MEDS: Pantoprazole 40 MG VIAL IVP SCH ×2 (08:58→21:21)
[2022-03-06] MEDS ORDERED: Hydrocortisone Sod Succ/PF 100 mg/2 ml Vial IVP SCH (09:00)
[2022-03-06] MEDS: Furosemide 40 MG/4 ML VIAL SLOW IVP SCH (09:30)
[2022-03-06] MEDS ORDERED: Famotidine/PF 20 mg/2ml Vial ONE (10:32)
[2022-03-06] MEDS ORDERED: diphenhydrAMINE 50 MG/ML VIAL ONE (10:32)
[2022-03-06] MEDS ORDERED: methylPREDNISolone Sod Succ 40 MG VIAL ONE (10:32)
[2022-03-06] MEDS ORDERED: Fentanyl CADD 100 ML ONE (10:34)
[2022-03-06] MEDS: Fentanyl CADD 100 ML IV SCH (10:45)
[2022-03-06 11:42] LABS: ALT (SGPT) 30 U/L (8-55); AST (SGOT) 45 U/L (5-34); Albumin 3.1 g/dL (3.4-4.8); Alkaline Phosphatase 66 U/L (40-110); Anion Gap 9 mmol/L (10-20); BUN (Urea Nitrogen) 79 mg/dL (9.8-20.1); Bilirubin, Total 6.5 mg/dL (0.2-1.2); Calc. Creatinine Clearance 50 mL/min (70-130); Calcium 8.2 mg/dL (7.8-10.44); Carbon Dioxide 27 mmol/L (23-31); Chloride 112 mmol/L (98-107); Estimated GFR 56; Globulin 1.3 g/dL (2.4-3.5); Glucose 185 mg/dL (83-110); Potassium 4.2 mmol/L (3.5-5.1); Protein, Total 4.4 g/dL (5.8-8.1); Sodium 144 mmol/L (136-145)
[2022-03-06] MEDS: Fluconazole In NaCl,Iso-Osm 400 MG in Premix Bag 1 BAG IVPB SCH (11:43)
[2022-03-06] MEDS: Enalaprilat Dihydrate 1.25 MG/ML VIAL SLOW IVP SCH ×3 (11:44→23:38)
[2022-03-06] MEDS: Metoclopramide HCl 10 MG/2 ML VIAL IVP SCH ×3 (11:44→23:38)
[2022-03-06 12:25] LABS: Magnesium 2.2 mg/dL (1.6-2.6)
[2022-03-06] MEDS ORDERED: niCARdipine 25 MG in Sodium Chloride 0.9% 250 ML 250 ML IVPB SCH (14:00)
[2022-03-06] MEDS: Multivitamins, Adult 10 ML, TRACE ELEMENT CONCENTRATE 1 ML, Fat Emulsion 250 ML in D15W... IV SCH (14:43)
[2022-03-06 15:43] LABS: ANA Symphony (Qualitative) POSITIVE (Negative); CENP IgG Antibody Greater than 240.0 EliAU/mL (<7 Negative); EliA Vaculitis New Method **** NEW METHOD ****; Jo-1 IgG Antibody Less than 0.3 EliAU/mL (<7 Negative); RNP70 IgG Antibody 0.5 EliAU/mL (<7 Negative); SSA/Ro IgG Antibody 0.9 EliAU/mL (<7 Negative); SSB/La IgG Antibody 0.3 EliAU/mL (<7 Negative); Scleroderma-70 IgG Antibody Less than 0.6 EliAU/mL (<7 Negative); Smith D IgG Antibody 2.6 EliAU/mL (<7 Negative); dsDNA IgG Antibody 1.6 IU/mL (<10 Negative)
[2022-03-06] MEDS: Insulin Regular 300 UNITS/3 ML VIAL SC PRN (17:18)
[2022-03-07 04:45] LABS: ALT (SGPT) 29 U/L (8-55); AST (SGOT) 45 U/L (5-34); Albumin 2.5 g/dL (3.4-4.8); Alkaline Phosphatase 67 U/L (40-110); Anion Gap 10 mmol/L (10-20); BUN (Urea Nitrogen) 78 mg/dL (9.8-20.1); Bilirubin, Total 5.4 mg/dL (0.2-1.2); Calc. Creatinine Clearance 60 mL/min (70-130); Calcium 7.9 mg/dL (7.8-10.44); Carbon Dioxide 27 mmol/L (23-31); Chloride 112 mmol/L (98-107); Estimated GFR 69; Globulin 1.3 g/dL (2.4-3.5); Glucose 140 mg/dL (83-110); Potassium 4.3 mmol/L (3.5-5.1); Protein, Total 3.8 g/dL (5.8-8.1); Sodium 145 mmol/L (136-145)
[2022-03-07 05:20] LABS: Anisocytosis SLIGHT = 6-15 cells (100X) (0-5/hpf); Band 7 % (5-11); Burr Cells MODERATE= 6-15 cells (100X) (0-1/hpf); Elliptocytes SLIGHT = 2-5 cells (100X) (0-1/hpf); Hemoglobin 11.5 g/dL (12.0-16.0); Hypochromia SLIGHT = 6-15 cells (100X) (0-5/hpf); Lymphocytes 7 % (21-51); MDiff Complete? YES; Macrocytosis SLIGHT = 6-15 cells (100X) (0-5/hpf); Mean Corpuscular HGB CONC 31.4 g/dL (32.0-36.0); Mean Corpuscular Hemoglobin 31.7 pg (27.0-31.0); Mean Platelet Volume 9.3 fL (7.4-10.4); Monocytes 6 % (0-10); Myelocyte 1 % (0-0); Neutrophil 79 % (42-75); Ovalocytes SLIGHT = 2-5 cells (100X) (0-1/hpf); Platelet Count 54 thou/uL (130-400); Platelet Morphology Comment Appears Decreased; Polychromasia SLIGHT = 2-3 cells (100X) (0-2/hpf); RBC Distribution Width 19.3 % (11.5-14.5); Red Blood Cell (RBC) Count 3.63 mill/uL (4.20-5.40); Reflex for Review?? NO; White Blood Cell (WBC) Count 9.2 thou/uL (4.8-10.8)
[2022-03-07] MEDS: Metoclopramide HCl 10 MG/2 ML VIAL IVP SCH ×4 (05:51→23:48)
[2022-03-07] MEDS: Enalaprilat Dihydrate 1.25 MG/ML VIAL SLOW IVP SCH ×4 (06:47→23:48)
[2022-03-07] MEDS: Carvedilol 3.125 MG TAB PO SCH ×2 (08:38→17:33)
[2022-03-07] MEDS: Rifaximin 550 MG TAB PO SCH ×2 (08:38→21:08)
[2022-03-07] MEDS: Pantoprazole 40 MG VIAL IVP SCH ×2 (08:38→21:08)
[2022-03-07 09:23] LABS: Actual Bicarbonate (HCO3v) 26 mEq/L (22-28); Base Excess 2.4 mEq/L (-2.0 to +3.0); Calcium, Ionized (venous) 1.11 mmol/L (1.16-1.32); Chloride (VBG) 110 mmol/L (98-106); Hemoglobin (Hb) 12.7 g/dL (11.7-16.1); Potassium (VBG) 4.25 mmol/L (3.70-5.30); Sodium 141.1 mmol/L (133-146); pH (venous) 7.45 (7.32-7.43)
[2022-03-07] MEDS: Fluconazole In NaCl,Iso-Osm 400 MG in Premix Bag 1 BAG IVPB SCH (11:19)
[2022-03-07] MEDS: Furosemide 40 MG/4 ML VIAL SLOW IVP SCH (11:19)
[2022-03-07] MEDS: Multivitamins, Adult 10 ML, TRACE ELEMENT CONCENTRATE 1 ML in D15W-AA 5% with Lytes 2,0... IV SCH (14:20)
[2022-03-07] MEDS: Labetalol HCl 100 MG/20 ML VIAL SLOW IVP PRN ×2 (14:21→18:43)
[2022-03-07] MEDS: hydrALAZINE 20 MG/ML VIAL SLOW IVP PRN (21:07)
[2022-03-07] MEDS: Amlodipine 5 MG TAB PO SCH (21:08)
[2022-03-08] MEDS: Methylnaltrexone 12 MG/0.6 ML VIAL SC SCH (00:12)
[2022-03-08 04:25] LABS: #Eosinphils 0.1 thou/uL (0.0-0.7); #Lymphocytes 0.9 thou/uL (1.20-3.40); #Monocytes 1.3 thou/uL (0.11-0.59); #Neutrophils 6.6 thou/uL (1.40-6.50); %Basophils 0.1 % (0.0-1.0); %Eosinophils 1.4 % (0.0-10.0); %Lymphocytes 9.6 % (21.0-51.0); %Monocytes 14.6 % (0.0-10.0); %Neutrophils 74.3 % (42.0-75.0); Hemoglobin 12.2 g/dL (12.0-16.0); Mean Corpuscular HGB CONC 30.3 g/dL (32.0-36.0); Mean Corpuscular Hemoglobin 30.4 pg (27.0-31.0); Mean Platelet Volume 9.6 fL (7.4-10.4); Platelet Count 59 thou/uL (130-400); RBC Distribution Width 20.8 % (11.5-14.5); Red Blood Cell (RBC) Count 4.03 mill/uL (4.20-5.40); White Blood Cell (WBC) Count 8.9 thou/uL (4.8-10.8)
[2022-03-08 04:27] LABS: Platelet Count 58 thou/uL (130-400)
[2022-03-08 04:31] LABS: ALT (SGPT) 31 U/L (8-55); AST (SGOT) 53 U/L (5-34); Albumin 2.4 g/dL (3.4-4.8); Alkaline Phosphatase 94 U/L (40-110); Anion Gap 8 mmol/L (10-20); BUN (Urea Nitrogen) 70 mg/dL (9.8-20.1); Bilirubin, Total 7.8 mg/dL (0.2-1.2); Calc. Creatinine Clearance 68 mL/min (70-130); Calcium 7.9 mg/dL (7.8-10.44); Carbon Dioxide 30 mmol/L (23-31); Chloride 111 mmol/L (98-107); Estimated GFR 82; Globulin 1.4 g/dL (2.4-3.5); Glucose 127 mg/dL (83-110); Potassium 4.5 mmol/L (3.5-5.1); Protein, Total 3.8 g/dL (5.8-8.1); Sodium 144 mmol/L (136-145)
[2022-03-08 04:39] LABS: Fibrinogen 190 mg/dL (253-463)
[2022-03-08 04:40] LABS: PTT 43.5 sec (22.9-36.1)
[2022-03-08 04:41] LABS: INR-International Normal Ratio 1.8; Prothrombin Time 21.2 sec (12.0-14.7)
[2022-03-08 04:45] LABS: D-Dimer Test 11.11 *mcg/mL (0.27-0.43)
[2022-03-08] MEDS: Enalaprilat Dihydrate 1.25 MG/ML VIAL SLOW IVP SCH (05:22)
[2022-03-08] MEDS: Metoclopramide HCl 10 MG/2 ML VIAL IVP SCH ×3 (05:22→16:57)
[2022-03-08] MEDS: Pantoprazole 40 MG VIAL IVP SCH ×2 (08:25→20:29)
[2022-03-08] MEDS: Carvedilol 3.125 MG TAB PO SCH ×2 (08:25→16:44)
[2022-03-08] MEDS: Rifaximin 550 MG TAB PO SCH ×2 (08:25→20:29)
[2022-03-08] MEDS: Furosemide 40 MG/4 ML VIAL SLOW IVP SCH (08:26)
[2022-03-08] MEDS: Lisinopril 10 MG TAB PO SCH (08:28)
[2022-03-08] MEDS ORDERED: Magnevist 469MG/ML 20 ML VIAL ONE (10:43)
[2022-03-08] MEDS: Fluconazole In NaCl,Iso-Osm 400 MG in Premix Bag 1 BAG IVPB SCH (11:45)
[2022-03-08] MEDS ORDERED: Albumin 25% 25 GM/100 ML BOT IVPB SCH (15:00)
[2022-03-08] MEDS ORDERED: Furosemide 40 MG/4 ML VIAL SLOW IVP SCH (15:30)
[2022-03-08] MEDS: Amlodipine 5 MG TAB PO SCH (20:29)
[2022-03-09] MEDS: Metoclopramide HCl 10 MG/2 ML VIAL IVP SCH ×5 (00:12→18:08)
[2022-03-09 04:50] LABS: ALT (SGPT) 29 U/L (8-55); AST (SGOT) 52 U/L (5-34); Albumin 2.7 g/dL (3.4-4.8); Alkaline Phosphatase 112 U/L (40-110); Anion Gap 9 mmol/L (10-20); BUN (Urea Nitrogen) 63 mg/dL (9.8-20.1); Bilirubin, Total 9.8 mg/dL (0.2-1.2); Calc. Creatinine Clearance 77 mL/min (70-130); Carbon Dioxide 32 mmol/L (23-31); Chloride 110 mmol/L (98-107); Estimated GFR 87; Globulin 1.4 g/dL (2.4-3.5); Glucose 116 mg/dL (83-110); Potassium 4.3 mmol/L (3.5-5.1); Protein, Total 4.1 g/dL (5.8-8.1); Sodium 147 mmol/L (136-145)
[2022-03-09 05:02] LABS: #Eosinphils 0.1 thou/uL (0.0-0.7); #Lymphocytes 0.7 thou/uL (1.20-3.40); #Monocytes 0.9 thou/uL (0.11-0.59); #Neutrophils 4.9 thou/uL (1.40-6.50); %Basophils 0.1 % (0.0-1.0); %Eosinophils 2.1 % (0.0-10.0); %Lymphocytes 11.1 % (21.0-51.0); %Monocytes 13.4 % (0.0-10.0); %Neutrophils 73.4 % (42.0-75.0); Anisocytosis SLIGHT = 6-15 cells (100X) (0-5/hpf); Hemoglobin 12.2 g/dL (12.0-16.0); MDiff Complete? YES; Mean Corpuscular HGB CONC 31.3 g/dL (32.0-36.0); Mean Corpuscular Hemoglobin 31.8 pg (27.0-31.0); Mean Platelet Volume 9.7 fL (7.4-10.4); Platelet Count 60 thou/uL (130-400); Platelet Morphology Comment Appears Decreased; Red Blood Cell (RBC) Count 3.82 mill/uL (4.20-5.40); White Blood Cell (WBC) Count 6.7 thou/uL (4.8-10.8)
[2022-03-09] MEDS: hydrALAZINE 20 MG/ML VIAL SLOW IVP PRN (07:48)
[2022-03-09] MEDS: Carvedilol 3.125 MG TAB PO SCH ×2 (07:49→17:05)
[2022-03-09] MEDS ORDERED: Furosemide 40 MG/4 ML VIAL SLOW IVP SCH (09:00)
[2022-03-09] MEDS: Furosemide 40 MG/4 ML VIAL SLOW IVP SCH (09:14)
[2022-03-09] MEDS: Albumin 25% 25 GM/100 ML BOT IVPB SCH (09:14)
[2022-03-09] MEDS: Pantoprazole 40 MG VIAL IVP SCH ×2 (09:15→20:46)
[2022-03-09] MEDS: Lisinopril 10 MG TAB PO SCH (10:18)
[2022-03-09] MEDS: Rifaximin 550 MG TAB PO SCH ×2 (10:18→20:45)
[2022-03-09] MEDS: Fluconazole In NaCl,Iso-Osm 400 MG in Premix Bag 1 BAG IVPB SCH (11:30)
[2022-03-09] MEDS: Amlodipine 5 MG TAB PO SCH (20:43)
[2022-03-10] MEDS: Methylnaltrexone 12 MG/0.6 ML VIAL SC SCH (00:24)
[2022-03-10] MEDS: hydrALAZINE 20 MG/ML VIAL SLOW IVP PRN ×2 (01:06→14:04)
[2022-03-10] MEDS: Metoclopramide HCl 10 MG/2 ML VIAL IVP SCH ×4 (01:22→17:13)
[2022-03-10] MEDS: Acetaminophen 325 MG TAB PO PRN ×2 (01:45→22:15)
[2022-03-10 04:34] LABS: ALT (SGPT) 29 U/L (8-55); AST (SGOT) 52 U/L (5-34); Albumin 2.6 g/dL (3.4-4.8); Alkaline Phosphatase 123 U/L (40-110); Anion Gap 9 mmol/L (10-20); BUN (Urea Nitrogen) 52 mg/dL (9.8-20.1); Calc. Creatinine Clearance 75 mL/min (70-130); Carbon Dioxide 36 mmol/L (23-31); Chloride 110 mmol/L (98-107); Estimated GFR 87; Globulin 1.2 g/dL (2.4-3.5); Glucose 131 mg/dL (83-110); Potassium 3.8 mmol/L (3.5-5.1); Protein, Total 3.8 g/dL (5.8-8.1); Sodium 151 mmol/L (136-145)
[2022-03-10 04:43] LABS: #Eosinphils 0.1 thou/uL (0.0-0.7); #Lymphocytes 0.8 thou/uL (1.20-3.40); #Monocytes 0.8 thou/uL (0.11-0.59); #Neutrophils 4.9 thou/uL (1.40-6.50); %Eosinophils 0.8 % (0.0-10.0); %Lymphocytes 11.7 % (21.0-51.0); %Monocytes 11.9 % (0.0-10.0); %Neutrophils 75.5 % (42.0-75.0); Hemoglobin 11.1 g/dL (12.0-16.0); Hypochromia SLIGHT = 6-15 cells (100X) (0-5/hpf); MDiff Complete? YES; Mean Corpuscular HGB CONC 30.8 g/dL (32.0-36.0); Mean Corpuscular Hemoglobin 31.3 pg (27.0-31.0); Mean Platelet Volume 9.7 fL (7.4-10.4); Platelet Count 61 thou/uL (130-400); Platelet Morphology Comment Appears Decreased; RBC Distribution Width 21.2 % (11.5-14.5); Red Blood Cell (RBC) Count 3.55 mill/uL (4.20-5.40); White Blood Cell (WBC) Count 6.4 thou/uL (4.8-10.8)
[2022-03-10] MEDS: Pantoprazole 40 MG VIAL IVP SCH ×2 (09:08→20:19)
[2022-03-10] MEDS: Carvedilol 3.125 MG TAB PO SCH ×2 (09:08→17:07)
[2022-03-10] MEDS: Rifaximin 550 MG TAB PO SCH ×2 (09:08→20:19)
[2022-03-10] MEDS: Lisinopril 10 MG TAB PO SCH (09:08)
[2022-03-10] MEDS ORDERED: Albumin 25% 100 ML ONE (09:35)
[2022-03-10] MEDS: Albumin 25% 25 GM/100 ML BOT IVPB SCH (09:37)
[2022-03-10] MEDS ORDERED: Morphine 4 MG/ML VIAL SLOW IVP PRN (11:01)
[2022-03-10] MEDS ORDERED: Midazolam HCl 2 mg/2 ml Vial SLOW IVP PRN (11:02)
[2022-03-10] MEDS ORDERED: Fentanyl BOLUS 250 ML IVPB PRN (11:02)
[2022-03-10] MEDS ORDERED: Fentanyl CADD 100 ML IV SCH (11:15)
[2022-03-10] MEDS: Fluconazole In NaCl,Iso-Osm 400 MG in Premix Bag 1 BAG IVPB SCH (11:32)
[2022-03-10] MEDS: Amlodipine 5 MG TAB PO SCH (20:19)
[2022-03-11] MEDS: Metoclopramide HCl 10 MG/2 ML VIAL IVP SCH ×4 (00:12→18:11)
[2022-03-11 04:47] LABS: #Eosinphils 0.1 thou/uL (0.0-0.7); #Lymphocytes 0.8 thou/uL (1.20-3.40); #Monocytes 0.7 thou/uL (0.11-0.59); #Neutrophils 4.3 thou/uL (1.40-6.50); %Basophils 0.3 % (0.0-1.0); %Eosinophils 1.6 % (0.0-10.0); %Lymphocytes 13.4 % (21.0-51.0); %Monocytes 11.2 % (0.0-10.0); %Neutrophils 73.5 % (42.0-75.0); Hemoglobin 11.4 g/dL (12.0-16.0); Mean Corpuscular HGB CONC 31.1 g/dL (32.0-36.0); Mean Corpuscular Hemoglobin 31.7 pg (27.0-31.0); Mean Platelet Volume 9.4 fL (7.4-10.4); Platelet Count 69 thou/uL (130-400); RBC Distribution Width 21.1 % (11.5-14.5); Red Blood Cell (RBC) Count 3.61 mill/uL (4.20-5.40); White Blood Cell (WBC) Count 5.8 thou/uL (4.8-10.8)
[2022-03-11 05:04] LABS: ALT (SGPT) 26 U/L (8-55); AST (SGOT) 57 U/L (5-34); Albumin 2.7 g/dL (3.4-4.8); Alkaline Phosphatase 135 U/L (40-110); Anion Gap 10 mmol/L (10-20); BUN (Urea Nitrogen) 47 mg/dL (9.8-20.1); Bilirubin, Total 12.6 mg/dL (0.2-1.2); Calc. Creatinine Clearance 81 mL/min (70-130); Carbon Dioxide 33 mmol/L (23-31); Chloride 111 mmol/L (98-107); Estimated GFR 89; Globulin 1.4 g/dL (2.4-3.5); Glucose 134 mg/dL (83-110); Potassium 3.8 mmol/L (3.5-5.1); Protein, Total 4.1 g/dL (5.8-8.1); Sodium 150 mmol/L (136-145)
[2022-03-11] MEDS: Pantoprazole 40 MG VIAL IVP SCH ×2 (08:14→20:07)
[2022-03-11] MEDS: Carvedilol 3.125 MG TAB PO SCH ×2 (08:14→18:18)
[2022-03-11] MEDS: Rifaximin 550 MG TAB PO SCH ×2 (08:14→20:06)
[2022-03-11] MEDS: Lisinopril 10 MG TAB PO SCH (08:14)
[2022-03-11] MEDS ORDERED: Furosemide 40 MG/4 ML VIAL SLOW IVP SCH (09:00)
[2022-03-11] MEDS: Fluconazole In NaCl,Iso-Osm 400 MG in Premix Bag 1 BAG IVPB SCH (10:50)
[2022-03-11] MEDS: Amlodipine 5 MG TAB PO SCH (20:06)
[2022-03-11] MEDS: Melatonin 3 MG TAB PO SCH (20:06)
[2022-03-12] MEDS: Metoclopramide HCl 10 MG/2 ML VIAL IVP SCH ×5 (00:09→23:32)
[2022-03-12] MEDS: Methylnaltrexone 12 MG/0.6 ML VIAL SC SCH (00:09)
[2022-03-12 04:40] LABS: #Eosinphils 0.1 thou/uL (0.0-0.7); #Lymphocytes 1.1 thou/uL (1.20-3.40); #Monocytes 0.8 thou/uL (0.11-0.59); #Neutrophils 4.8 thou/uL (1.40-6.50); %Basophils 0.7 % (0.0-1.0); %Eosinophils 1.3 % (0.0-10.0); %Lymphocytes 15.7 % (21.0-51.0); %Monocytes 11.4 % (0.0-10.0); Hemoglobin 10.4 g/dL (12.0-16.0); Mean Corpuscular HGB CONC 30.6 g/dL (32.0-36.0); Mean Corpuscular Hemoglobin 31.3 pg (27.0-31.0); Mean Platelet Volume 10.2 fL (7.4-10.4); Platelet Count 79 thou/uL (130-400); RBC Distribution Width 21.1 % (11.5-14.5); Red Blood Cell (RBC) Count 3.31 mill/uL (4.20-5.40); White Blood Cell (WBC) Count 6.7 thou/uL (4.8-10.8)
[2022-03-12 05:32] LABS: ALT (SGPT) 34 U/L (8-55); AST (SGOT) 70 U/L (5-34); Albumin 2.4 g/dL (3.4-4.8); Alkaline Phosphatase 174 U/L (40-110); Anion Gap 8 mmol/L (10-20); BUN (Urea Nitrogen) 47 mg/dL (9.8-20.1); Bilirubin, Total 12.4 mg/dL (0.2-1.2); Calc. Creatinine Clearance 81 mL/min (70-130); Calcium 8.1 mg/dL (7.8-10.44); Carbon Dioxide 36 mmol/L (23-31); Chloride 111 mmol/L (98-107); Estimated GFR 89; Globulin 1.4 g/dL (2.4-3.5); Glucose 132 mg/dL (83-110); Potassium 3.8 mmol/L (3.5-5.1); Protein, Total 3.8 g/dL (5.8-8.1); Sodium 151 mmol/L (136-145)
[2022-03-12] MEDS: Rifaximin 550 MG TAB PO SCH ×2 (08:04→20:49)
[2022-03-12] MEDS: Pantoprazole 40 MG VIAL IVP SCH ×2 (08:04→21:18)
[2022-03-12] MEDS: Lisinopril 10 MG TAB PO SCH (08:04)
[2022-03-12] MEDS: Dextrose 5% in Water 1,000 ML IV SCH ×2 (08:04→23:32)
[2022-03-12] MEDS: Polyethylene Glycol 3350 17 GM Packet PER TUBE SCH (08:05)
[2022-03-12] MEDS: Carvedilol 3.125 MG TAB PO SCH ×2 (08:05→16:55)
[2022-03-12] MEDS: Acetaminophen 325 MG TAB PO PRN ×2 (09:02→23:32)
[2022-03-12] MEDS: Fluconazole In NaCl,Iso-Osm 400 MG in Premix Bag 1 BAG IVPB SCH (11:07)
[2022-03-12] MEDS ORDERED: Furosemide 40 MG/4 ML VIAL SLOW IVP SCH (16:30)
[2022-03-12] MEDS: Albumin 25% 25 GM/100 ML BOT IVPB SCH (20:48)
[2022-03-12] MEDS: Amlodipine 5 MG TAB PO SCH (20:49)
[2022-03-12] MEDS: Melatonin 3 MG TAB PO SCH (20:49)
[2022-03-13] MEDS: Metoclopramide HCl 10 MG/2 ML VIAL IVP SCH ×3 (05:54→20:42)
[2022-03-13 07:11] LABS: #Eosinphils 0.1 thou/uL (0.0-0.7); #Lymphocytes 1.4 thou/uL (1.20-3.40); #Monocytes 0.7 thou/uL (0.11-0.59); %Basophils 0.6 % (0.0-1.0); %Eosinophils 1.8 % (0.0-10.0); %Monocytes 11.1 % (0.0-10.0); %Neutrophils 64.4 % (42.0-75.0); Hemoglobin 9.1 g/dL (12.0-16.0); Mean Corpuscular HGB CONC 30.7 g/dL (32.0-36.0); Mean Corpuscular Hemoglobin 31.3 pg (27.0-31.0); Mean Platelet Volume 10.3 fL (7.4-10.4); Platelet Count 78 10x3/uL (130-400); RBC Distribution Width 21.3 % (11.5-14.5); White Blood Cell (WBC) Count 6.1 10x3/uL (4.8-10.8)
[2022-03-13 07:18] LABS: ALT (SGPT) 38 U/L (8-55); AST (SGOT) 71 U/L (5-34); Albumin 2.7 g/dL (3.4-4.8); Alkaline Phosphatase 178 U/L (40-110); Anion Gap 7 mmol/L (10-20); BUN (Urea Nitrogen) 40 mg/dL (9.8-20.1); Bilirubin, Total 13.9 mg/dL (0.2-1.2); Calc. Creatinine Clearance 79 mL/min (70-130); Calcium 7.9 mg/dL (7.8-10.44); Carbon Dioxide 34 mmol/L (23-31); Chloride 109 mmol/L (98-107); Estimated GFR 89; Globulin 1.3 g/dL (2.4-3.5); Glucose 125 mg/dL (83-110); Potassium 3.8 mmol/L (3.5-5.1); Sodium 146 mmol/L (136-145)
[2022-03-13] MEDS: Lisinopril 10 MG TAB PO SCH (09:19)
[2022-03-13] MEDS: Albumin 25% 25 GM/100 ML BOT IVPB SCH ×3 (09:19→20:42)
[2022-03-13] MEDS: Rifaximin 550 MG TAB PO SCH ×2 (09:19→20:44)
[2022-03-13] MEDS: Ursodiol 300 MG CAP PO SCH ×3 (09:19→16:18)
[2022-03-13] MEDS: Carvedilol 3.125 MG TAB PO SCH ×2 (09:19→16:17)
[2022-03-13] MEDS: Pantoprazole 40 MG VIAL IVP SCH ×2 (09:20→20:43)
[2022-03-13] MEDS: Polyethylene Glycol 3350 17 GM Packet PER TUBE SCH (09:20)
[2022-03-13] MEDS: Dextrose 5% in Water 1,000 ML IV SCH ×2 (09:20→23:54)
[2022-03-13] MEDS: Fluconazole In NaCl,Iso-Osm 400 MG in Premix Bag 1 BAG IVPB SCH (11:58)
[2022-03-13] MEDS ORDERED: DRY MOUTH SPRAY PO PRN (17:40)
[2022-03-13] MEDS: Melatonin 3 MG TAB PO SCH (20:43)
[2022-03-13] MEDS: Amlodipine 5 MG TAB PO SCH (20:43)
[2022-03-13] MEDS: Acetaminophen 325 MG TAB PO PRN (21:08)
[2022-03-14 06:57] LABS: #Eosinphils 0.1 thou/uL (0.0-0.7); #Monocytes 0.7 thou/uL (0.11-0.59); #Neutrophils 3.5 thou/uL (1.40-6.50); %Basophils 0.4 % (0.0-1.0); %Eosinophils 2.3 % (0.0-10.0); %Lymphocytes 19.4 % (21.0-51.0); %Monocytes 13.4 % (0.0-10.0); %Neutrophils 64.5 % (42.0-75.0); Anisocytosis SLIGHT = 6-15 cells (100X) (0-5/hpf); Hemoglobin 7.9 g/dL (12.0-16.0); MDiff Complete? YES; Macrocytosis SLIGHT = 6-15 cells (100X) (0-5/hpf); Mean Corpuscular HGB CONC 31.7 g/dL (32.0-36.0); Mean Corpuscular Hemoglobin 31.9 pg (27.0-31.0); Mean Platelet Volume 10.4 fL (7.4-10.4); Platelet Count 76 10x3/uL (130-400); Platelet Morphology Comment Appears Decreased; RBC Distribution Width 20.6 % (11.5-14.5); Red Blood Cell (RBC) Count 2.48 mill/uL (4.20-5.40); White Blood Cell (WBC) Count 5.4 10x3/uL (4.8-10.8)
[2022-03-14 07:04] LABS: ALT (SGPT) 35 U/L (8-55); AST (SGOT) 68 U/L (5-34); Albumin 3.2 g/dL (3.4-4.8); Alkaline Phosphatase 166 U/L (40-110); Anion Gap 12 mmol/L (10-20); BUN (Urea Nitrogen) 33 mg/dL (9.8-20.1); Bilirubin, Total 13.4 mg/dL (0.2-1.2); Calc. Creatinine Clearance 88 mL/min (70-130); Carbon Dioxide 26 mmol/L (23-31); Chloride 105 mmol/L (98-107); Estimated GFR 91; Globulin 1.2 g/dL (2.4-3.5); Glucose 111 mg/dL (83-110); Protein, Total 4.4 g/dL (5.8-8.1); Sodium 139 mmol/L (136-145)
[2022-03-14] MEDS: Rifaximin 550 MG TAB PO SCH ×2 (08:44→21:43)
[2022-03-14] MEDS: Lisinopril 10 MG TAB PO SCH (08:44)
[2022-03-14] MEDS: Carvedilol 3.125 MG TAB PO SCH ×2 (08:44→17:36)
[2022-03-14] MEDS: Ursodiol 300 MG CAP PO SCH ×3 (08:44→17:36)
[2022-03-14] MEDS: Polyethylene Glycol 3350 17 GM Packet PER TUBE SCH (08:45)
[2022-03-14] MEDS: Metoclopramide HCl 10 MG/2 ML VIAL IVP SCH ×2 (08:45→21:44)
[2022-03-14] MEDS: Pantoprazole 40 MG VIAL IVP SCH ×2 (08:50→21:42)
[2022-03-14] MEDS: Fluconazole In NaCl,Iso-Osm 400 MG in Premix Bag 1 BAG IVPB SCH (11:46)
[2022-03-14 18:54] LABS: Hemoglobin 8.9 g/dL (12.0-16.0)
[2022-03-14] MEDS: Amlodipine 5 MG TAB PO SCH (21:43)
[2022-03-14] MEDS: Melatonin 3 MG TAB PO SCH (21:48)
[2022-03-15 05:55] LABS: #Eosinphils 0.2 thou/uL (0.0-0.7); #Lymphocytes 1.6 thou/uL (1.20-3.40); #Monocytes 0.9 thou/uL (0.11-0.59); #Neutrophils 4.9 thou/uL (1.40-6.50); %Basophils 0.2 % (0.0-1.0); %Lymphocytes 20.7 % (21.0-51.0); %Monocytes 11.8 % (0.0-10.0); %Neutrophils 65.3 % (42.0-75.0); Hemoglobin 8.6 g/dL (12.0-16.0); Mean Corpuscular HGB CONC 31.8 g/dL (32.0-36.0); Mean Corpuscular Hemoglobin 31.8 pg (27.0-31.0); Mean Platelet Volume 10.5 fL (7.4-10.4); Platelet Count 86 10x3/uL (130-400); RBC Distribution Width 20.9 % (11.5-14.5); White Blood Cell (WBC) Count 7.5 10x3/uL (4.8-10.8)
[2022-03-15 06:26] LABS: ALT (SGPT) 47 U/L (8-55); AST (SGOT) 86 U/L (5-34); Albumin 2.8 g/dL (3.4-4.8); Alkaline Phosphatase 201 U/L (40-110); Anion Gap 9 mmol/L (10-20); BUN (Urea Nitrogen) 30 mg/dL (9.8-20.1); Bilirubin, Total 14.7 mg/dL (0.2-1.2); Calc. Creatinine Clearance 88 mL/min (70-130); Calcium 7.8 mg/dL (7.8-10.44); Carbon Dioxide 29 mmol/L (23-31); Chloride 103 mmol/L (98-107); Estimated GFR 91; Globulin 1.3 g/dL (2.4-3.5); Glucose 105 mg/dL (83-110); Potassium 4.1 mmol/L (3.5-5.1); Protein, Total 4.1 g/dL (5.8-8.1); Sodium 137 mmol/L (136-145)
[2022-03-15] MEDS: Ursodiol 300 MG CAP PO SCH ×3 (08:37→17:11)
[2022-03-15] MEDS: Carvedilol 3.125 MG TAB PO SCH ×2 (08:37→17:11)
[2022-03-15] MEDS: Rifaximin 550 MG TAB PO SCH (08:37)
[2022-03-15] MEDS: Polyethylene Glycol 3350 17 GM Packet PER TUBE SCH (08:38)
[2022-03-15] MEDS: Lisinopril 10 MG TAB PO SCH (08:38)
[2022-03-15] MEDS: Pantoprazole 40 MG VIAL IVP SCH ×2 (08:38→21:41)
[2022-03-15] MEDS: Metoclopramide HCl 10 MG/2 ML VIAL IVP SCH (08:38)
[2022-03-15] MEDS: Fluconazole In NaCl,Iso-Osm 400 MG in Premix Bag 1 BAG IVPB SCH (12:09)
[2022-03-15] MEDS: Amlodipine 5 MG TAB PO SCH (21:38)
[2022-03-15] MEDS: Melatonin 3 MG TAB PO SCH (21:40)
[2022-03-16 06:18] LABS: #Eosinphils 0.1 thou/uL (0.0-0.7); #Lymphocytes 1.8 thou/uL (1.20-3.40); #Neutrophils 5.2 thou/uL (1.40-6.50); %Basophils 0.6 % (0.0-1.0); %Eosinophils 0.9 % (0.0-10.0); %Monocytes 12.1 % (0.0-10.0); %Neutrophils 64.3 % (42.0-75.0); Hemoglobin 9.1 g/dL (12.0-16.0); Mean Corpuscular HGB CONC 31.6 g/dL (32.0-36.0); Mean Corpuscular Hemoglobin 31.8 pg (27.0-31.0); Mean Platelet Volume 10.1 fL (7.4-10.4); Platelet Count 109 10x3/uL (130-400); RBC Distribution Width 21.5 % (11.5-14.5); Red Blood Cell (RBC) Count 2.86 mill/uL (4.20-5.40); White Blood Cell (WBC) Count 8.2 10x3/uL (4.8-10.8)
[2022-03-16 06:34] LABS: ALT (SGPT) 67 U/L (8-55); AST (SGOT) 106 U/L (5-34); Albumin 2.6 g/dL (3.4-4.8); Alkaline Phosphatase 243 U/L (40-110); Anion Gap 9 mmol/L (10-20); BUN (Urea Nitrogen) 27 mg/dL (9.8-20.1); Bilirubin, Total 15.3 mg/dL (0.2-1.2); Calc. Creatinine Clearance 86 mL/min (70-130); Calcium 7.9 mg/dL (7.8-10.44); Carbon Dioxide 29 mmol/L (23-31); Chloride 103 mmol/L (98-107); Estimated GFR 91; Globulin 1.4 g/dL (2.4-3.5); Glucose 123 mg/dL (83-110); Potassium 4.2 mmol/L (3.5-5.1); Sodium 137 mmol/L (136-145)
[2022-03-16] MEDS: Lisinopril 10 MG TAB PO SCH (09:03)
[2022-03-16] MEDS: Ursodiol 300 MG CAP PO SCH ×3 (09:03→16:50)
[2022-03-16] MEDS: Rifaximin 550 MG TAB PO SCH ×2 (09:03→20:08)
[2022-03-16] MEDS: Carvedilol 3.125 MG TAB PO SCH ×2 (09:03→16:50)
[2022-03-16] MEDS: Pantoprazole 40 MG VIAL IVP SCH ×2 (09:03→20:08)
[2022-03-16] MEDS: Polyethylene Glycol 3350 17 GM Packet PER TUBE SCH (09:04)
[2022-03-16] MEDS: Amlodipine 5 MG TAB PO SCH (20:07)
[2022-03-16] MEDS: Melatonin 3 MG TAB PO SCH (20:08)
[2022-03-17 05:44] LABS: #Eosinphils 0.1 thou/uL (0.0-0.7); #Lymphocytes 1.8 thou/uL (1.20-3.40); #Neutrophils 5.3 thou/uL (1.40-6.50); %Basophils 0.5 % (0.0-1.0); %Eosinophils 1.1 % (0.0-10.0); %Lymphocytes 21.8 % (21.0-51.0); %Monocytes 12.6 % (0.0-10.0); Hemoglobin 9.3 g/dL (12.0-16.0); Mean Corpuscular HGB CONC 31.8 g/dL (32.0-36.0); Mean Corpuscular Hemoglobin 32.2 pg (27.0-31.0); Mean Platelet Volume 10.1 fL (7.4-10.4); Platelet Count 113 10x3/uL (130-400); RBC Distribution Width 21.9 % (11.5-14.5); Red Blood Cell (RBC) Count 2.89 mill/uL (4.20-5.40); White Blood Cell (WBC) Count 8.3 10x3/uL (4.8-10.8)
[2022-03-17 05:58] LABS: ALT (SGPT) 90 U/L (8-55); AST (SGOT) 133 U/L (5-34); Albumin 2.5 g/dL (3.4-4.8); Alkaline Phosphatase 246 U/L (40-110); Anion Gap 7 mmol/L (10-20); BUN (Urea Nitrogen) 23 mg/dL (9.8-20.1); Calc. Creatinine Clearance 89 mL/min (70-130); Calcium 7.8 mg/dL (7.8-10.44); Carbon Dioxide 29 mmol/L (23-31); Chloride 104 mmol/L (98-107); Estimated GFR 92; Globulin 1.6 g/dL (2.4-3.5); Glucose 122 mg/dL (83-110); Potassium 4.2 mmol/L (3.5-5.1); Protein, Total 4.1 g/dL (5.8-8.1); Sodium 136 mmol/L (136-145)
[2022-03-17] MEDS: Polyethylene Glycol 3350 17 GM Packet PER TUBE SCH (09:24)
[2022-03-17] MEDS: Carvedilol 3.125 MG TAB PO SCH ×2 (09:24→16:44)
[2022-03-17] MEDS: Ursodiol 300 MG CAP PO SCH ×3 (09:24→16:44)
[2022-03-17] MEDS: Rifaximin 550 MG TAB PO SCH ×2 (09:24→20:44)
[2022-03-17] MEDS: Lisinopril 10 MG TAB PO SCH (09:24)
[2022-03-17] MEDS: Pantoprazole 40 MG VIAL IVP SCH ×2 (09:28→20:44)
[2022-03-17] MEDS: Furosemide 20 MG/2 ML VIAL SLOW IVP SCH (14:43)
[2022-03-17] MEDS: Spironolactone 25 MG TAB PO SCH (16:44)
[2022-03-17] MEDS: Melatonin 3 MG TAB PO SCH (20:43)
[2022-03-17] MEDS: Amlodipine 5 MG TAB PO SCH (20:44)
[2022-03-18] MEDS: Furosemide 20 MG/2 ML VIAL SLOW IVP SCH ×2 (06:42→15:03)
[2022-03-18 07:26] LABS: #Eosinphils 0.1 thou/uL (0.0-0.7); #Lymphocytes 1.6 thou/uL (1.20-3.40); #Neutrophils 4.6 thou/uL (1.40-6.50); %Basophils 0.6 % (0.0-1.0); %Eosinophils 1.1 % (0.0-10.0); %Lymphocytes 21.6 % (21.0-51.0); %Monocytes 13.8 % (0.0-10.0); %Neutrophils 62.9 % (42.0-75.0); Hemoglobin 9.4 g/dL (12.0-16.0); Mean Corpuscular Hemoglobin 32.9 pg (27.0-31.0); Platelet Count 117 10x3/uL (130-400); RBC Distribution Width 22.2 % (11.5-14.5); Red Blood Cell (RBC) Count 2.85 mill/uL (4.20-5.40); White Blood Cell (WBC) Count 7.4 10x3/uL (4.8-10.8)
[2022-03-18 07:31] LABS: ALT (SGPT) 105 U/L (8-55); AST (SGOT) 150 U/L (5-34); Albumin 2.4 g/dL (3.4-4.8); Alkaline Phosphatase 278 U/L (40-110); Anion Gap 9 mmol/L (10-20); BUN (Urea Nitrogen) 26 mg/dL (9.8-20.1); Bilirubin, Total 15.6 mg/dL (0.2-1.2); Calc. Creatinine Clearance 91 mL/min (70-130); Carbon Dioxide 29 mmol/L (23-31); Chloride 101 mmol/L (98-107); Estimated GFR 92; Globulin 1.6 g/dL (2.4-3.5); Glucose 113 mg/dL (83-110); Potassium 4.4 mmol/L (3.5-5.1); Sodium 135 mmol/L (136-145)
[2022-03-18 07:52] LABS: INR-International Normal Ratio 1.4; Prothrombin Time 17.7 sec (12.0-14.7)
[2022-03-18] MEDS: Lisinopril 10 MG TAB PO SCH (08:30)
[2022-03-18] MEDS: Spironolactone 25 MG TAB PO SCH ×2 (08:30→17:16)
[2022-03-18] MEDS: Ursodiol 300 MG CAP PO SCH ×3 (08:30→17:17)
[2022-03-18] MEDS: Rifaximin 550 MG TAB PO SCH ×2 (08:30→21:31)
[2022-03-18] MEDS: Pantoprazole 40 MG VIAL IVP SCH ×2 (08:30→21:31)
[2022-03-18] MEDS: Polyethylene Glycol 3350 17 GM Packet PER TUBE SCH (08:30)
[2022-03-18] MEDS: Carvedilol 3.125 MG TAB PO SCH ×2 (08:30→17:17)
[2022-03-18 08:31] LABS: MDiff Complete? YES; Platelet Morphology Comment Appears Decreased; Polychromasia SLIGHT = 2-3 cells (100X) (0-2/hpf)
[2022-03-18] MEDS: Melatonin 3 MG TAB PO SCH (21:30)
[2022-03-19] MEDS: Furosemide 20 MG/2 ML VIAL SLOW IVP SCH ×2 (06:44→14:30)
[2022-03-19] MEDS: Ursodiol 300 MG CAP PO SCH ×3 (08:51→17:53)
[2022-03-19] MEDS: Carvedilol 3.125 MG TAB PO SCH ×2 (08:51→17:53)
[2022-03-19] MEDS: Rifaximin 550 MG TAB PO SCH (08:51)
[2022-03-19] MEDS: Spironolactone 25 MG TAB PO SCH ×2 (08:51→17:53)
[2022-03-19] MEDS: Pantoprazole 40 MG VIAL IVP SCH ×2 (08:51→20:48)
[2022-03-19] MEDS: Polyethylene Glycol 3350 17 GM Packet PER TUBE SCH (08:52)
[2022-03-19 09:05] LABS: Hemoglobin 10.1 g/dL (12.0-16.0); Mean Corpuscular HGB CONC 31.7 g/dL (32.0-36.0); Mean Corpuscular Hemoglobin 33.1 pg (27.0-31.0); Mean Platelet Volume 9.8 fL (7.4-10.4); Platelet Count 129 10x3/uL (130-400); RBC Distribution Width 22.2 % (11.5-14.5); Red Blood Cell (RBC) Count 3.05 mill/uL (4.20-5.40); White Blood Cell (WBC) Count 9.3 10x3/uL (4.8-10.8)
[2022-03-19 09:14] LABS: ALT (SGPT) 120 U/L (8-55); AST (SGOT) 162 U/L (5-34); Albumin 2.4 g/dL (3.4-4.8); Alkaline Phosphatase 305 U/L (40-110); Anion Gap 10 mmol/L (10-20); BUN (Urea Nitrogen) 26 mg/dL (9.8-20.1); Bilirubin, Total 16.3 mg/dL (0.2-1.2); Calc. Creatinine Clearance 79 mL/min (70-130); Calcium 8.1 mg/dL (7.8-10.44); Carbon Dioxide 28 mmol/L (23-31); Chloride 101 mmol/L (98-107); Estimated GFR 89; Globulin 1.8 g/dL (2.4-3.5); Glucose 106 mg/dL (83-110); Potassium 4.4 mmol/L (3.5-5.1); Protein, Total 4.2 g/dL (5.8-8.1); Sodium 135 mmol/L (136-145)
[2022-03-19 09:37] LABS: Band 1 % (5-11); Lymphocytes 28 % (21-51); MDiff Complete? YES; Macrocytosis SLIGHT = 6-15 cells (100X) (0-5/hpf); Monocytes 12 % (0-10); Neutrophil 58 % (42-75); Platelet Morphology Comment Appears Decreased; Polychromasia MODERATE = 3-4 cells (100X) (0-2/hpf)
[2022-03-19] MEDS: Albumin 25% 25 GM/100 ML BOT IVPB SCH (20:48)
[2022-03-20] MEDS: Furosemide 20 MG/2 ML VIAL SLOW IVP SCH ×2 (06:32→14:27)
[2022-03-20 07:22] LABS: ALT (SGPT) 110 U/L (8-55); AST (SGOT) 148 U/L (5-34); Albumin 2.7 g/dL (3.4-4.8); Alkaline Phosphatase 285 U/L (40-110); Anion Gap 8 mmol/L (10-20); BUN (Urea Nitrogen) 26 mg/dL (9.8-20.1); Calc. Creatinine Clearance 80 mL/min (70-130); Calcium 8.2 mg/dL (7.8-10.44); Carbon Dioxide 31 mmol/L (23-31); Chloride 100 mmol/L (98-107); Estimated GFR 90; Globulin 1.6 g/dL (2.4-3.5); Glucose 120 mg/dL (83-110); Potassium 4.4 mmol/L (3.5-5.1); Protein, Total 4.3 g/dL (5.8-8.1); Sodium 135 mmol/L (136-145)
[2022-03-20] MEDS: Pantoprazole 40 MG VIAL IVP SCH ×2 (09:26→20:11)
[2022-03-20] MEDS: Carvedilol 3.125 MG TAB PO SCH ×2 (09:26→16:23)
[2022-03-20] MEDS: Albumin 25% 25 GM/100 ML BOT IVPB SCH ×3 (09:26→20:11)
[2022-03-20] MEDS: Ursodiol 300 MG CAP PO SCH ×3 (09:26→16:23)
[2022-03-20] MEDS: Spironolactone 25 MG TAB PO SCH ×2 (09:26→16:23)
[2022-03-20] MEDS: Polyethylene Glycol 3350 17 GM Packet PER TUBE SCH (09:27)
[2022-03-20 12:10] LABS: Anisocytosis SLIGHT = 6-15 cells (100X) (0-5/hpf); Band 8 % (5-11); Eosinophils 1 % (0-10); Hemoglobin 8.3 g/dL (12.0-16.0); Lymphocytes 23 % (21-51); MDiff Complete? YES; Mean Corpuscular HGB CONC 30.2 g/dL (32.0-36.0); Mean Corpuscular Hemoglobin 31.4 pg (27.0-31.0); Monocytes 11 % (0-10); Myelocyte 1 % (0-0); Neutrophil 55 % (42-75); Nucleated RBC 1 % (0); Platelet Count 124 10x3/uL (130-400); Platelet Morphology Comment Appears Decreased; Red Blood Cell (RBC) Count 2.65 mill/uL (4.20-5.40); White Blood Cell (WBC) Count 7.4 10x3/uL (4.8-10.8)
[2022-03-20] MEDS: methylPREDNISolone Sod Succ 40 MG VIAL IVP SCH (20:11)
[2022-03-21] MEDS: methylPREDNISolone Sod Succ 40 MG VIAL IVP SCH ×2 (05:55→15:25)
[2022-03-21] MEDS: Furosemide 20 MG/2 ML VIAL SLOW IVP SCH ×2 (05:55→15:25)
[2022-03-21 07:10] LABS: ALT (SGPT) 105 U/L (8-55); AST (SGOT) 141 U/L (5-34); Albumin 3.7 g/dL (3.4-4.8); Alkaline Phosphatase 198 U/L (40-110); Anion Gap 13 mmol/L (10-20); BUN (Urea Nitrogen) 28 mg/dL (9.8-20.1); Bilirubin, Total 19.1 mg/dL (0.2-1.2); Calc. Creatinine Clearance 73 mL/min (70-130); Carbon Dioxide 28 mmol/L (23-31); Chloride 101 mmol/L (98-107); Estimated GFR 88; Globulin 1.4 g/dL (2.4-3.5); Glucose 104 mg/dL (83-110); Potassium 4.6 mmol/L (3.5-5.1); Protein, Total 5.1 g/dL (5.8-8.1); Sodium 137 mmol/L (136-145)
[2022-03-21 07:20] LABS: #Monocytes 0.3 thou/uL (0.11-0.59); %Basophils 0.2 % (0.0-1.0); %Eosinophils 0.5 % (0.0-10.0); %Lymphocytes 19.3 % (21.0-51.0); %Monocytes 6.2 % (0.0-10.0); %Neutrophils 73.9 % (42.0-75.0); Hemoglobin 8.5 g/dL (12.0-16.0); MDiff Complete? YES; Mean Corpuscular HGB CONC 31.7 g/dL (32.0-36.0); Mean Corpuscular Hemoglobin 32.9 pg (27.0-31.0); Mean Platelet Volume 9.9 fL (7.4-10.4); Platelet Count 127 10x3/uL (130-400); Platelet Morphology Comment Appears Decreased; Polychromasia SLIGHT = 2-3 cells (100X) (0-2/hpf); RBC Distribution Width 21.4 % (11.5-14.5); Red Blood Cell (RBC) Count 2.58 mill/uL (4.20-5.40); Stomatocytes SLIGHT = 2-5 cells (100X) (0-1/hpf); White Blood Cell (WBC) Count 5.3 10x3/uL (4.8-10.8)
[2022-03-21] MEDS: Ursodiol 300 MG CAP PO SCH ×3 (09:09→17:25)
[2022-03-21] MEDS: Carvedilol 3.125 MG TAB PO SCH ×2 (09:09→17:25)
[2022-03-21] MEDS: Polyethylene Glycol 3350 17 GM Packet PER TUBE SCH (09:09)
[2022-03-21] MEDS: Pantoprazole 40 MG VIAL IVP SCH ×2 (09:09→20:28)
[2022-03-21] MEDS: Spironolactone 100 MG TAB PO SCH (09:09)
[2022-03-21] MEDS: Insulin Regular 300 UNITS/3 ML VIAL SC PRN (17:26)
[2022-03-22] MEDS: Furosemide 20 MG/2 ML VIAL SLOW IVP SCH (05:24)
[2022-03-22 06:46] LABS: ALT (SGPT) 122 U/L (8-55); AST (SGOT) 151 U/L (5-34); Albumin 3.3 g/dL (3.4-4.8); Alkaline Phosphatase 234 U/L (40-110); Anion Gap 14 mmol/L (10-20); BUN (Urea Nitrogen) 37 mg/dL (9.8-20.1); Bilirubin, Total 17.6 mg/dL (0.2-1.2); Calc. Creatinine Clearance 67 mL/min (70-130); Calcium 8.9 mg/dL (7.8-10.44); Carbon Dioxide 26 mmol/L (23-31); Chloride 101 mmol/L (98-107); Estimated GFR 83; Globulin 1.7 g/dL (2.4-3.5); Glucose 182 mg/dL (83-110); Potassium 4.4 mmol/L (3.5-5.1); Sodium 137 mmol/L (136-145)
[2022-03-22 07:06] LABS: #Lymphocytes 0.9 thou/uL (1.20-3.40); #Monocytes 0.9 thou/uL (0.11-0.59); #Neutrophils 6.8 thou/uL (1.40-6.50); %Eosinophils 0.2 % (0.0-10.0); %Neutrophils 78.9 % (42.0-75.0); Hemoglobin 8.9 g/dL (12.0-16.0); Mean Corpuscular HGB CONC 31.6 g/dL (32.0-36.0); Mean Corpuscular Hemoglobin 33.1 pg (27.0-31.0); Platelet Count 169 10x3/uL (130-400); RBC Distribution Width 21.4 % (11.5-14.5); Red Blood Cell (RBC) Count 2.67 mill/uL (4.20-5.40); White Blood Cell (WBC) Count 8.6 10x3/uL (4.8-10.8)
[2022-03-22 08:40] VITALS: BP 156/73; TEMP 97.8
[2022-03-22] MEDS: Carvedilol 3.125 MG TAB PO SCH (09:26)
[2022-03-22] MEDS: Polyethylene Glycol 3350 17 GM Packet PER TUBE SCH (09:27)
[2022-03-22] MEDS: Pantoprazole 40 MG VIAL IVP SCH (09:27)
[2022-03-22] MEDS: Spironolactone 100 MG TAB PO SCH (09:27)
[2022-03-22] MEDS: Ursodiol 300 MG CAP PO SCH (09:27)
== END 2022-03-22 13:08 | DRG 853 ==
LOC: T4-B 22:54 → CCU 23:36 → T4-A 03-12 10:35
PROVIDERS: ADMIT Internal Medicine; ATTEND Internal Medicine
PROC: 3E03329 Introduction of Other Anti-infective into Peripheral Vein, Percutaneous Approach (ICD-10-PCS; 2022-02-26)
PROC: 0DU907Z Supplement Duodenum with Autologous Tissue Substitute, Open Approach (ICD-10-PCS; principal; 2022-02-27)
PROC: 0DQ90ZZ Repair Duodenum, Open Approach (ICD-10-PCS; 2022-02-27)
PROC: 5A1955Z Respiratory Ventilation, Greater than 96 Consecutive Hours (ICD-10-PCS; 2022-02-27)
PROC: 30233N1 Transfusion of Nonautologous Red Blood Cells into Peripheral Vein, Percutaneous Approach (ICD-10-PCS; 2022-02-27)
PROC: 30233L1 Transfusion of Nonautologous Fresh Plasma into Peripheral Vein, Percutaneous Approach (ICD-10-PCS; 2022-02-27)
PROC: 30233M1 Transfusion of Nonautologous Plasma Cryoprecipitate into Peripheral Vein, Percutaneous Approach (ICD-10-PCS; 2022-02-27)
PROC: 0DJ08ZZ Inspection of Upper Intestinal Tract, Via Natural or Artificial Opening Endoscopic (ICD-10-PCS; 2022-02-27)
PROC: 02H633Z Insertion of Infusion Device into Right Atrium, Percutaneous Approach (ICD-10-PCS; 2022-03-01)
PROC: 3E0436Z Introduction of Nutritional Substance into Central Vein, Percutaneous Approach (ICD-10-PCS; 2022-03-01)
PROC: 0D9670Z Drainage of Stomach with Drainage Device, Via Natural or Artificial Opening (ICD-10-PCS; 2022-03-01)
DX: A41.9 Sepsis, unspecified organism (principal); D65 Disseminated intravascular coagulation [defibrination syndrome]; G93.41 Metabolic encephalopathy; K26.6 Chronic or unspecified duodenal ulcer with both hemorrhage and perforation; J96.01 Acute respiratory failure with hypoxia; K65.9 Peritonitis, unspecified; D62 Acute posthemorrhagic anemia; R18.8 Other ascites; D68.9 Coagulation defect, unspecified; E87.20 Acidosis, unspecified; E46 Unspecified protein-calorie malnutrition; B48.8 Other specified mycoses; R57.9 Shock, unspecified; Z66 Do not resuscitate; Z51.5 Encounter for palliative care; Z20.822 Contact with and (suspected) exposure to COVID-19; I25.10 Atherosclerotic heart disease of native coronary artery without angina pectoris; I10 Essential (primary) hypertension; K76.82 Hepatic encephalopathy; K74.60 Unspecified cirrhosis of liver; K74.3 Primary biliary cirrhosis; R13.12 Dysphagia, oropharyngeal phase; Z95.1 Presence of aortocoronary bypass graft; Z79.52 Long term (current) use of systemic steroids; Z68.30 Body mass index [BMI] 30.0-30.9, adult
CPT/HCPCS: 36415; 36416; 36430; 36600; 70450; 70553; 71045; 74018; 74230; 74246; 76705; 80048; 80053; 80061; 80074; 80076; 80202; 81001; 82103; 82105; 82140; 82533; 82607; 82805; 83516; 83540; 83550; 83605; 83690; 83735; 84100; 84134; 85014; 85018; 85025; 85049; 85300; 85362; 85379; 85384; 85610; 85730; 86015; 86038; 86225; 86235; 86708; 86850; 86900; 86901; 87070; 87086; 87205; 87340; 87517; 87811; 93005; 93010; 93306; 94002; 94003; 95712; 95819; 95957; 97139; A9579; C9113; J0360; J0692; J1450; J1720; J1815; J1940; J2212; J2250; J2270; J2354; J2370; J2405; J2543; J2704; J2765; J2920; J3010; J3370; J3475; J3480; J3490; J7030; J7050; J7070; J7120; P9012; P9016; P9040; P9045; P9047; P9059; S0028; U0002